=== PATIENT | male | born 1945 | race Caucasian/White ===

== ENCOUNTER 2017-12-06 13:53 | Outpatient (CLI) | payer MEDICARE, BC | END 2017-12-06 13:54 | disposition home or self-care (01) | LOC: BICMRI 13:53 | PROVIDERS: ATTEND Anesthesiology | DX: M51.16 Intervertebral disc disorders with radiculopathy, lumbar region (principal); M99.83 Other biomechanical lesions of lumbar region; Z98.890 Other specified postprocedural states | CPT/HCPCS: 72148 ==

== ENCOUNTER 2017-12-27 07:37 | Day surgery (SDC) | payer MEDICARE, BC ==
[2017-12-24 09:29] VITALS: BMI 34.0
--- NOTE | 2017-12-27 02:28 | HP ---
HISTORY OF PRESENT ILLNESS: Mr. Reese is a 72-year-old man who is known to have previous lumbar de compression returns now with a right-sided lower extremity S1 radiculopathy and right foot drop. He has L5 disk herniation with superior migration that effaces both the L5 nerve as it exits and the crystal cending S1 nerve. He has tried physical therapy, injections, medications and was only offered limite d relief, elected to proceed with surgery at this time. PAST MEDICAL HISTORY: Significant for hypercholesterolemia, BPH, chronic pain, diabetes, hypertensio n. CURRENT MEDICATIONS: Include DHEA, metformin, , amitriptyline, tamsulosin, atorvastatin, carved ilol, glipizide, fenofibrate, losartan, hydrochlorothiazide, pioglitazone, dutasteride, aspirin, thyr oid medication, unspecified; isosorbide mononitrate, omeprazole, meloxicam, testosterone patch, trama dol, and Tylenol #3. ALLERGIES: No known drug allergies. PHYSICAL EXAMINATION: NEUROLOGIC: Patient is alert and oriented x3. Gait is antalgic. Does have a on the right wit h weakness with dorsiflexion. ASSESSMENT: Lumbar disk herniation. PLAN: Dr. Nam met with the patient, reviewed imaging and ultimately advocated for a right L5 diske ctomy. He explained to the patient the risks, benefits, alternatives of the procedure. The patient expressed understanding and would like to move forward with surgery as discussed. I do believe the p atient is mentally competent and capable of making medical decisions for himself. We will move forwa rd with surgery as planned. This is Donavon Case PA-C, dictating for Dr. Nam.
[2017-12-27] MEDS ORDERED: Lidocaine 2% w/Epinephrine 1:200K 20 ML VIAL ONE (08:03)
[2017-12-27] MEDS ORDERED: Thrombin 5000 UNITS/5 ML VIAL ONE (08:03)
[2017-12-27] MEDS ORDERED: Bupivacaine 0.5% 10 ML VIAL ONE (08:03)
[2017-12-27 08:08] LABS: #Basophils 0.1 thou/uL (0.0-0.2); #Eosinphils 0.1 thou/uL (0.0-0.7); #Lymphocytes 2.7 thou/uL (1.20-3.40); #Monocytes 0.7 thou/uL (0.11-0.59); #Neutrophils 2.8 thou/uL (1.40-6.50); %Basophils 2.2 % (0.0-1.0); %Lymphocytes 42.2 % (21.0-51.0); %Monocytes 10.5 % (0.0-10.0); %Neutrophils 43.1 % (42.0-75.0); Hemoglobin 16.3 g/dL (14.0-18.0); Mean Corpuscular HGB CONC 33.7 g/dL (32.0-36.0); Mean Corpuscular Hemoglobin 33.2 pg (27.0-31.0); Mean Corpuscular Volume 98.3 fl (80.0-94.0); Mean Platelet Volume 9.9 fL (7.4-10.4); Platelet Count 131 thou/uL (130-400); RBC Distribution Width 12.3 % (11.5-14.5); Red Blood Cell (RBC) Count 4.92 mill/uL (4.70-6.10); White Blood Cell (WBC) Count 6.4 thou/uL (4.8-10.8)
[2017-12-27] MEDS ORDERED: CEFAZOLIN/Water 2 GM/20 ML SYRINGE ONE ×2 (08:19→12:44)
[2017-12-27 08:30] LABS: Anion Gap 10 mmol/L (10-20); BUN (Urea Nitrogen) 22 mg/dL (8.4-25.7); Calc. Creatinine Clearance 59 mL/min (70-130); Calcium 9.8 mg/dL (7.8-10.44); Carbon Dioxide 25 mmol/L (23-31); Chloride 103 mmol/L (98-107); Estimated GFR-MDRD 42; Glucose 204 mg/dL (83-110); Potassium 4.2 mmol/L (3.5-5.1); Sodium 134 mmol/L (136-145)
[2017-12-27] MEDS ORDERED: Midazolam HCl 2 mg/2 ml Vial ONE (08:39)
[2017-12-27] MEDS ORDERED: Fentanyl 100 MCG/2 ML VIAL ONE ×2 (08:39→10:07)
--- NOTE | 2017-12-27 10:05 | OP ---
DATE OF PROCEDURE: 12/27/2017 SURGEON: Alejandro Nam M.D. RUBBER CUTTING MACHINE TENDER: Kvng Case PA-C. INDICATION: Pain. DIAGNOSIS: Lumbar radiculopathy. PROCEDURE: Right L5 diskectomy. ANESTHESIA: General. TECHNIQUE: The patient was brought into the operating room and placed under general anesthesia. He was flipped from a supine to a prone position on the operating room table. A linear incision was briseyda nned over the L5 segment. After prepping and draping and after an appropriate operative pause, the i ncision was created. The tissues were swept right of midline. A self-retaining retractor was placed in the wound for optimal exposure. After confirming the appropriate level, a high-speed cutting dri ll bit as well as 2, 3, and 4 mm Kerrison is used to perform a laminectomy along the right side of L5 . The descending S1 nerve root was identified and mobilized medially. A superiorly migrated disk pr otuberance was identified. An 11-blade knife was used to perform an annulotomy on the disk material. Several large disk fragments were removed until the lateral recesses were decompressed. The wound was irrigated. Hemostasis was maintained throughout. The wound was then closed in anatomic layers a nd a pressure dressing was applied. There were no known procedural complications.
[2017-12-27] MEDS ORDERED: Tamsulosin HCl 0.4 MG CAP ONE (10:10)
[2017-12-27] MEDS ORDERED: HYDROcodone/Acetaminophen 5/325 mg Tablet ONE (12:14)
[2017-12-27] MEDS ORDERED: ePHEDrine/0.9% NaCl/PF SYRINGE 50 mg/10 ml ONE (12:25)
[2017-12-27] MEDS ORDERED: Glycopyrrolate 0.2 MG/ML 5 ML SYRINGE ONE (12:25)
[2017-12-27] MEDS ORDERED: Ondansetron HCl/PF 4 MG/2 ML Vial ONE (12:25)
[2017-12-27] MEDS ORDERED: Lidocaine 1% PF 5 ML VIAL ONE (12:25)
[2017-12-27] MEDS ORDERED: PHENYLEPHRINE-NS 100 MCG/ML 10 ML SYRINGE ONE (12:25)
[2017-12-27] MEDS ORDERED: Labetalol 100 MG/20 ML MDV ONE (12:25)
[2017-12-27] MEDS ORDERED: Dexamethasone 20 MG/5 ML VIAL ONE (12:25)
[2017-12-27] MEDS ORDERED: Propofol 200 MG/20 ML VIAL ONE (12:25)
== END 2017-12-27 13:33 | disposition home or self-care (01) ==
LOC: SDC 07:37
PROVIDERS: ATTEND Neurological Surgery
PROC: 0SB20ZZ Excision of Lumbar Vertebral Disc, Open Approach (ICD-10-PCS; principal; 2017-12-27)
DX: M54.16 Radiculopathy, lumbar region (principal); I25.10 Atherosclerotic heart disease of native coronary artery without angina pectoris; E78.5 Hyperlipidemia, unspecified; E11.51 Type 2 diabetes mellitus with diabetic peripheral angiopathy without gangrene; I10 Essential (primary) hypertension; G47.33 Obstructive sleep apnea (adult) (pediatric); Z88.8 Allergy status to other drugs, medicaments and biological substances; Z95.5 Presence of coronary angioplasty implant and graft; Z82.49 Family history of ischemic heart disease and other diseases of the circulatory system
CPT/HCPCS: 36415; 76001; 80048; 85025; 93005; 93010; 96374; J1100; J2001; J2250; J2405; J2704; J3010; J3490

== ENCOUNTER 2020-05-15 21:06 | Inpatient (IN) | payer MEDICARE, BC ==
[2020-05-15 22:05] LABS: #Basophils 0.1 thou/uL (0.0-0.2); #Eosinphils 0.2 thou/uL (0.0-0.7); #Lymphocytes 2.7 thou/uL (1.20-3.40); #Monocytes 0.5 thou/uL (0.11-0.59); #Neutrophils 2.6 thou/uL (1.40-6.50); %Basophils 1.7 % (0.0-1.0); %Eosinophils 2.9 % (0.0-10.0); %Lymphocytes 44.3 % (21.0-51.0); %Monocytes 7.4 % (0.0-10.0); %Neutrophils 43.6 % (42.0-75.0); Hemoglobin 13.2 g/dL (14.0-18.0); Mean Corpuscular HGB CONC 33.5 g/dL (32.0-36.0); Mean Corpuscular Hemoglobin 32.2 pg (27.0-31.0); Mean Platelet Volume 11.3 fL (7.4-10.4); Platelet Count 190 thou/uL (130-400); RBC Distribution Width 12.7 % (11.5-14.5); Red Blood Cell (RBC) Count 4.12 mill/uL (4.70-6.10)
[2020-05-15] MEDS ORDERED: Aspirin 325 MG TAB ONE (22:09)
[2020-05-15 22:19] LABS: ALT (SGPT) 18 U/L (8-55); AST (SGOT) 21 U/L (5-34); Albumin 4.1 g/dL (3.4-4.8); Alkaline Phosphatase 49 U/L (40-110); Anion Gap 14 mmol/L (10-20); BUN (Urea Nitrogen) 22 mg/dL (8.4-25.7); Bilirubin, Total 0.5 mg/dL (0.2-1.2); Calc. Creatinine Clearance 0 mL/min (70-130); Calcium 10.6 mg/dL (7.8-10.44); Carbon Dioxide 23 mmol/L (23-31); Chloride 103 mmol/L (98-107); Estimated GFR-MDRD 39; Globulin 2.9 g/dL (2.4-3.5); Glucose 233 mg/dL (83-110); Potassium 3.7 mmol/L (3.5-5.1); Sodium 136 mmol/L (136-145)
[2020-05-15 22:23] LABS: Critical Call Chem Troponin I RESULT DECREASING
--- NOTE | 2020-05-15 22:38 | RAD ---
XR Chest 1 View Portable History: Chest pain Comparison: Radiograph 2015 Findings: Lungs are clear. No pneumothorax or effusion. Cardiac silhouette and mediastinal contours a re similar. No acute osseous abnormality. Impression: No acute intrathoracic abnormality.
[2020-05-15 22:41] LABS: CKMB 2.8 ng/mL (0-6.6)
[2020-05-15] MEDS ORDERED: Enoxaparin Sodium 100 MG/ML SYRINGE ONE (22:43)
[2020-05-15] MEDS ORDERED: Ondansetron ODT 4 MG TAB PO PRN (23:03)
[2020-05-15] MEDS ORDERED: Acetaminophen 325 MG TAB PO PRN (23:03)
[2020-05-15] MEDS ORDERED: Ondansetron PF 4 MG/2 ML Vial IVP PRN (23:03)
[2020-05-15] MEDS ORDERED: Acetaminophen 650 MG Suppository PR PRN (23:03)
[2020-05-15] MEDS ORDERED: HYDROcodone/Acetaminophen 5/325 mg Tablet PO PRN ×2 (23:03)
[2020-05-15] MEDS ORDERED: Nitroglycerin 0.4 MG TAB (25 Tab Bottle) PO PRN (23:03)
[2020-05-15] MEDS ORDERED: Dextrose 50% Abboject 50 ML SYRINGE SLOW IVP PRN (23:11)
[2020-05-15] MEDS ORDERED: HumaLOG 300 UNITS/3 ML VIAL SC PRN (23:11)
[2020-05-15] MEDS ORDERED: Dextrose 5% in Water 1,000 ML IV PRN (23:11)
--- NOTE | 2020-05-15 23:12 | PDOC.HHP ---
Hospitalist HPI - History of Present Illness chest pain History of Present Illness: Case of an 74y/o male with pmhx of dm, hyperlipidemia, ckd, htn and cad who comes to hospital sent by solderer due to elevated troponin and chest pain. patient refers he was on his usual states of health until 2 months ago when he started to developed occasional chest pain. pains is described as 8/10 of crushing quality in the restrosternal area that radiated to both arms, with a variable duration. he states that these symtoms kept progressing and now these episodes happen more ofter and with greater intensity and now are associated with sob. apart from these findings patient also report SHARIFA that improves with rest. denies any n/v leg edema orthopnea or PND. patient states that due to states above he went for an evaluation w his solderer who ran trops and an echo and later called the patient to go to the ED due to elevated troponins Hospitalist ROS - Review of Systems All other systems reviewed; all pertinent +/- noted in HPI/Subj Hospitalist History - Past Medical History Source: patient Cardiac: reports: CAD, HTN, Hyperlipidemia Endocrine: reports: Diabetes - Past Surgical History Past Surgical History: reports: Cholecystectomy, Cataract Removal Other Surgical History: penile implant - Family History Family History: reports: cancer, diabetes mellitus, hypertension - Social History Smoking Status: Never smoker Alcohol: reports: Occassional Drugs: reports: none Activity level: independent ambulation - Exam General Appearance: NAD, awake alert Eye: PERRL, anicteric sclera ENT: normocephalic atraumatic, no oropharyngeal lesions Neck: supple, symmetric, no JVD, no thyromegaly Heart: RRR, no murmur, no gallops, no rubs Respiratory: CTAB, no wheezes, no rales, no ronchi Gastrointestinal: soft, non-tender, non-distended, normal bowel sounds Extremities: no cyanosis, no clubbing, no edema Skin: normal turgor, no lesions, no rashes Neurological: cranial nerve grossly intact, normal sensation to touch, no weakness Musculoskeletal: normal tone, normal strength, no muscle wasting Psychiatric: normal affect, normal behavior, A&O x 3 Hospitalist Results - Labs Result Diagrams: 05/15/20 21:32 05/15/20 21:32 Lab results: WBC 6.0 thou/uL (4.8-10.8) 05/15/20 21:32 Hgb 13.2 g/dL (14.0-18.0) L 05/15/20 21:32 Hct 39.5 % (42.0-52.0) L 05/15/20 21:32 MCV 96.0 fL (78.0-98.0) 05/15/20 21:32 Plt Count 190 thou/uL (130-400) 05/15/20 21:32 Neutrophils % 43.6 % (42.0-75.0) 05/15/20 21:32 Sodium 136 mmol/L (136-145) 05/15/20 21:32 Potassium 3.7 mmol/L (3.5-5.1) 05/15/20 21:32 Chloride 103 mmol/L (98-107) 05/15/20 21:32 Carbon Dioxide 23 mmol/L (23-31) 05/15/20 21:32 BUN 22 mg/dL (8.4-25.7) 05/15/20 21:32 Creatinine 1.73 mg/dL (0.7-1.3) H 05/15/20 21:32 Glucose 233 mg/dL (83-110) H 05/15/20 21:32 Calcium 10.6 mg/dL (7.8-10.44) H 05/15/20 21:32 Total Bilirubin 0.5 mg/dL (0.2-1.2) 05/15/20 21:32 AST 21 U/L (5-34) 05/15/20 21:32 ALT 18 U/L (8-55) 05/15/20 21:32 Alkaline Phosphatase 49 U/L (40-110) 05/15/20 21:32 CK-MB (CK-2) 2.8 ng/mL (0-6.6) 05/15/20 21:32 Troponin I 0.376 ng/mL (< 0.028) H* 05/15/20 21:32 B-Natriuretic Peptide 99.2 pg/mL (0-100) 05/15/20 21:32 Serum Total Protein 7.0 g/dL (5.8-8.1) 05/15/20 21:32 Albumin 4.1 g/dL (3.4-4.8) 05/15/20 21:32 - EKG Interpretation EKG: no ischemic st changes - Radiology Interpretation Chest x-ray Additional Comment: no effusions consolidation or infiltrates Hospitalist H&P A/P - Problem (1) Chest pain Code(s): R07.9 - CHEST PAIN, UNSPECIFIED Status: Acute (2) Diabetes Code(s): E11.9 - TYPE 2 DIABETES MELLITUS WITHOUT COMPLICATIONS Status: Acute (3) HTN (hypertension) Code(s): I10 - ESSENTIAL (PRIMARY) HYPERTENSION Status: Acute (4) CAD (coronary artery disease) Code(s): I25.10 - ATHSCL HEART DISEASE OF [place] CORONARY ARTERY W/O ANG PCTRS Status: Acute (5) Hyperlipidemia Code(s): E78.5 - HYPERLIPIDEMIA, UNSPECIFIED Status: Acute - Plan Plan: 74 y/o with the stated pmhx who comes to hospital sent by solderer dr haskins due to elevated trops in a patient presenting symptoms of unstable angina chest pain -admit to tele obs - on optimal cad medication with beta frank statin and acei - full anticoagulation with lovenox - solderer consulted - [facility] in am - serial troponins - ivfs 1ml x kg to precent zev - accu cheks and ss
[2020-05-16] MEDS: Sodium Chloride 0.9% 1,000 ML IV SCH ×4 (00:24→20:23)
[2020-05-16 01:11] LABS: Critical Call Chem Troponin I RESULT DECREASING; Troponin I 0.358 ng/mL (< 0.028)
[2020-05-16 04:44] LABS: ALT (SGPT) 14 U/L (8-55); AST (SGOT) 17 U/L (5-34); Albumin 3.6 g/dL (3.4-4.8); Alkaline Phosphatase 45 U/L (40-110); Anion Gap 12 mmol/L (10-20); BUN (Urea Nitrogen) 21 mg/dL (8.4-25.7); Bilirubin, Total 0.3 mg/dL (0.2-1.2); Calc. Creatinine Clearance 65 mL/min (70-130); Calcium 9.9 mg/dL (7.8-10.44); Carbon Dioxide 23 mmol/L (23-31); Cardiac Risk 9.8 (Less than 4.5); Chloride 104 mmol/L (98-107); Cholesterol 186 mg/dl (< 200 Desired); Estimated GFR-MDRD 44; Globulin 2.5 g/dL (2.4-3.5); Glucose 168 mg/dL (83-110); HDL Cholesterol 19 mg/dL (>60 Neg Risk); Potassium 3.3 mmol/L (3.5-5.1); Protein, Total 6.1 g/dL (5.8-8.1); Sodium 136 mmol/L (136-145); Triglycerides 442 mg/dL (Less than 150)
[2020-05-16 04:47] LABS: Troponin I 0.278 ng/mL (< 0.028)
[2020-05-16 05:08] LABS: Eosinophils 2 % (0-10); Lymphocytes 64 % (21-51); MDiff Complete? YES; Mean Corpuscular HGB CONC 33.3 g/dL (32.0-36.0); Mean Corpuscular Hemoglobin 31.7 pg (27.0-31.0); Mean Corpuscular Volume 95.2 fL (78.0-98.0); Mean Platelet Volume 10.5 fL (7.4-10.4); Monocytes 3 % (0-10); Neutrophil 30 % (42-75); Platelet Count 177 thou/uL (130-400); Platelet Morphology Comment Appears Adequate; RBC Distribution Width 12.7 % (11.5-14.5); Red Blood Cell (RBC) Count 3.79 mill/uL (4.70-6.10)
[2020-05-16 05:28] LABS: Hemoglobin A1c 8.8 % (4.0-6.0)
[2020-05-16] MEDS: Isosorbide Dinitrate 20 MG TAB PO SCH (05:55)
[2020-05-16] MEDS: Carvedilol 6.25 MG TAB PO SCH ×2 (05:56→17:56)
[2020-05-16] MEDS: Tamsulosin HCl 0.4 MG CAP PO SCH (05:56)
[2020-05-16] MEDS: Fenofibrate Nanocrystallized 145 MG TAB PO SCH (05:56)
[2020-05-16] MEDS: Aspirin 325 mg Enteric Coated Tablet PO SCH (05:56)
[2020-05-16] MEDS ORDERED: Iopamidol 370 76% 100 ML VIAL ONE (08:42)
[2020-05-16] MEDS ORDERED: Enoxaparin Sodium 100 MG/ML SYRINGE SC SCH (09:00)
[2020-05-16] MEDS ORDERED: Prevnar 13-Val Conj/PF 0.5 ML SYRINGE IM ONE (09:00)
[2020-05-16] MEDS ORDERED: Nitroglycerin 100MG/250ML BOT 250 ML ONE (11:22)
[2020-05-16] MEDS ORDERED: Verapamil 5 MG/2 ML VIAL ONE (11:22)
[2020-05-16] MEDS ORDERED: Heparin 10,000 UNITS/1 ML VIAL ONE (11:22)
[2020-05-16] MEDS ORDERED: Acetaminophen/Codeine 30-300mg Tablet PO PRN ×2 (11:47)
[2020-05-16] MEDS ORDERED: Nitroglycerin 0.4 MG TAB (25 Tab Bottle) SL PRN (11:47)
[2020-05-16] MEDS ORDERED: Sodium Chloride 0.9% 200 ML IV PRN (11:47)
[2020-05-16] MEDS ORDERED: Communication Order-Pharmacy FS SCH (12:21)
[2020-05-16] MEDS ORDERED: Diazepam 5 MG TAB PO PRN (12:21)
--- NOTE | 2020-05-16 15:00 | CON ---
DATE OF CONSULTATION: 05/16/2020 REASON FOR CONSULTATION: Evaluate the patient for coronary artery bypass grafting. HISTORY OF PRESENT ILLNESS: Mr. Reese is a 74-year-old gentleman who was seen yesterday in the clinic by Dr. Larsen. He had a troponin checked due to a complaint of reflux and chest pain. Troponin was positive, so he was admitted and underwent cardiac catheterization today. Catheterization has shown severe three-vessel disease. Potential bypassable targets included an LAD, OM, and PDA. I have been asked to see and discuss coronary artery bypass grafting. PAST MEDICAL HISTORY: 1. Hypertension. 2. Coronary artery disease. 3. Dyslipidemia. 4. Diabetes mellitus. PAST SURGICAL HISTORY: 1. Cholecystectomy. 2. Cataract surgery. 3. Penile implant. SOCIAL HISTORY: He has never used tobacco. MEDICATIONS: At home: 1. Aspirin 81 mg daily. 2. Isosorbide mononitrate 30 mg daily. 3. Ditropan 15 mg daily. 4. Amitriptyline one daily. 5. Tylenol No. 3 p.r.n. 6. Actos 15 mg daily. 7. Omeprazole 40 mg daily. 8. Lovaza 1 g b.i.d. 9. DHEA one capsule q.a.m. 10. Glipizide XL 5 mg b.i.d. 11. Zonisamide 2 capsules b.i.d. 12. Tramadol 1 to 2 q.6 hours p.r.n. pain. 13. Metformin 1000 mg daily. 14. Fenofibrate 130 mg daily. 15. Carvedilol 6.25 mg b.i.d. 16. Atorvastatin 80 mg at bedtime. 17. Flomax 0.4 mg daily. 18. Losartan/hydrochlorothiazide 50/12.5 mg daily. ALLERGIES: NIACIN. PHYSICAL EXAMINATION: GENERAL: This is an obese gentleman, resting comfortably post cath. VITAL SIGNS: His height is 5 feet 7 inches. His weight is 240 pounds. BSA is 2.27. BMI is 37. Temperature is 97.9, pulse is 73 and regular, and blood pressure is 110/54. HEENT: Sclerae nonicteric. Pupils are equal and round bilaterally. NECK: Supple without bruit. CHEST: Clear bilaterally with a barrel chest. HEART: Rhythm is regular without murmur. ABDOMEN: Soft and nontender. EXTREMITIES: No edema. VASCULAR: Palpable carotid, radial, femoral, dorsalis pedis pulses bilaterally. Venous: There are no venous stasis changes. LABORATORY DATA: Of note: Potassium is 3.3, creatinine is 1.55. Hemoglobin is 12.0, platelet count is 177,000. Chest x-ray shows normal cardiac silhouette with clear lung villatoro and no dominant lung mass. ASSESSMENT AND PLAN: Mr. Reese is a 74-year-old gentleman with severe three-vessel disease and unstable angina. Risks, benefits, and options to coronary artery bypass grafting have been discussed with him and he is agreeable to proceed tomorrow. Job ID: [id number]
--- NOTE | 2020-05-16 15:53 | PDOC.HOSPP ---
- Subjective Encounter Date: 05/16/20 Subjective: Feels well. Happy to have some food to eat. - Objective Vital Signs & Weight: Vital Signs (12 hours) Temp Pulse Resp BP BP Pulse Ox 05/16/20 08:50 97.9 F 73 14 110/54 L 96 05/16/20 05:56 114/58 L Weight Weight 240 lb 3.2 oz Result Diagrams: 05/16/20 04:11 05/16/20 04:11 Additional Labs: Accuchecks 05/16/20 05/16/20 10:52 05:27 POC Glucose 183 H 181 H Hospitalist ROS - Medication Medications: Active Medications Generic Name Dose Route Start Last Admin Trade Name Freq PRN Reason Stop Dose Admin Aspirin 325 mg 05/16/20 09:00 05/16/20 05:56 Ecotrin PO 325 mg DAILY DON Administration Carvedilol 6.25 mg 05/16/20 08:00 05/16/20 05:56 Coreg PO 6.25 mg BID-WM DON Administration Fenofibrate 145 mg 05/16/20 09:00 05/16/20 05:56 Tricor PO 145 mg DAILY DON Administration Sodium Chloride 1,000 mls @ 125 mls/hr 05/16/20 12:00 05/16/20 13:47 Normal Saline 0.9% IV 05/17/20 00:01 Not Given .Q8H DON Isosorbide Dinitrate 30 mg 05/16/20 09:00 05/16/20 05:55 Isordil PO 30 mg DAILY DON Administration Tamsulosin HCl 0.4 mg 05/16/20 09:00 05/16/20 05:56 Flomax PO 0.4 mg DAILY DON Administration - Exam General Appearance: NAD, awake alert Neck: supple, symmetric, no JVD, no thyromegaly, no lymphadenopathy, no carotid bruit Heart: RRR, no murmur, no gallops, no rubs, normal peripheral pulses Respiratory: CTAB, no wheezes, no rales, no ronchi, normal chest expansion, no tachypnea, normal percussion Gastrointestinal: soft, non-tender, non-distended, normal bowel sounds, no palpable masses, no hepatomegaly, no splenomegaly, no bruit Extremities: no cyanosis, no clubbing, no edema Skin: normal turgor Musculoskeletal: normal tone, normal strength, no muscle wasting Psychiatric: normal affect, normal behavior, A&O x 3 Hosp A/P (1) CAD (coronary artery disease) Code(s): I25.10 - ATHSCL HEART DISEASE OF [place] CORONARY ARTERY W/O ANG PCTRS Status: Acute (2) Chest pain Code(s): R07.9 - CHEST PAIN, UNSPECIFIED Status: Acute (3) Diabetes Code(s): E11.9 - TYPE 2 DIABETES MELLITUS WITHOUT COMPLICATIONS Status: Acute (4) HTN (hypertension) Code(s): I10 - ESSENTIAL (PRIMARY) HYPERTENSION Status: Acute (5) Hyperlipidemia Code(s): E78.5 - HYPERLIPIDEMIA, UNSPECIFIED Status: Acute - Plan Coronary artery disease: Patient had three-vessel disease it was severe. He has been seen by CV surgery. Anticipate bypass tomorrow. Hypertension: Continue with the patient's home antihypertensives. Hyperlipidemia: Patient is on high-dose, high potency statin. He still has a fairly poor cholesterol profile. Continue home meds. Diabetes mellitus: Continue with home insulin regimen.
[2020-05-16] MEDS ORDERED: Potassium Chloride 20 MEQ TAB PO SCH (16:15)
[2020-05-16] MEDS: Atorvastatin Calcium 40 MG TAB PO SCH (20:23)
[2020-05-16] MEDS ORDERED: Insulin Glargine 10 UNITS in Pre-Filled Syringe 1 EACH SC SCH (21:00)
[2020-05-17 05:14] LABS: Anion Gap 13 mmol/L (10-20); BUN (Urea Nitrogen) 16 mg/dL (8.4-25.7); Calc. Creatinine Clearance 68 mL/min (70-130); Calcium 9.3 mg/dL (7.8-10.44); Carbon Dioxide 21 mmol/L (23-31); Chloride 109 mmol/L (98-107); Estimated GFR-MDRD 46; Glucose 170 mg/dL (83-110); Potassium 4.1 mmol/L (3.5-5.1); Sodium 139 mmol/L (136-145)
[2020-05-17] MEDS: Fenofibrate Nanocrystallized 145 MG TAB PO SCH (05:43)
[2020-05-17] MEDS: Isosorbide Dinitrate 20 MG TAB PO SCH (05:43)
[2020-05-17] MEDS: Tamsulosin HCl 0.4 MG CAP PO SCH (05:43)
[2020-05-17] MEDS: Carvedilol 6.25 MG TAB PO SCH (05:44)
[2020-05-17] MEDS: Aspirin 325 mg Enteric Coated Tablet PO SCH (05:44)
[2020-05-17] MEDS ORDERED: Bupivacaine PF 0.5% 30 ML VIAL ONE (06:29)
[2020-05-17] MEDS ORDERED: EPINEPHrine 1 MG/ML AMP ONE (06:29)
[2020-05-17] MEDS ORDERED: Albumin 5% 500 ML ONE (06:29)
[2020-05-17] MEDS ORDERED: Heparin 10,000 UNITS/1 ML VIAL 30,000 UNITS in Sodium Chloride 0.9% 1,000 ML FS SCH (06:45)
[2020-05-17] MEDS ORDERED: Midazolam HCl 5 mg/5 ml Vial ONE (06:51)
[2020-05-17] MEDS ORDERED: Dexmedetomidine 200 MCG/2 ML VIAL ONE (06:51)
[2020-05-17] MEDS ORDERED: Fentanyl 250 MCG/5 ML VIAL ONE (06:51)
[2020-05-17] MEDS ORDERED: Midazolam HCl 2 mg/2 ml Vial ONE (07:06)
[2020-05-17] MEDS ORDERED: CEFAZOLIN 2 GM in Premix Bag 1 BAG IVPB SCH (07:30)
[2020-05-17] MEDS ORDERED: Insulin Regular 300 UNITS/3 ML VIAL ONE (08:02)
[2020-05-17] MEDS ORDERED: D5 1/2 NS w/20 mEq KCL 1,000 ML IV SCH (11:10)
[2020-05-17] MEDS ORDERED: Promethazine HCl 25 MG/ML VIAL IM PRN (11:10)
[2020-05-17] MEDS ORDERED: Fentanyl 100 MCG/2 ML VIAL SLOW IVP PRN (11:10)
[2020-05-17] MEDS ORDERED: HYDROcodone/Acetaminophen 5/325 mg Tablet PO PRN (11:10)
[2020-05-17] MEDS ORDERED: Guaifenesin DM 100-10/5 ML UDCUP PO PRN (11:10)
[2020-05-17] MEDS ORDERED: Bisacodyl 10 MG SUPP PR PRN (11:10)
[2020-05-17] MEDS ORDERED: niCARdipine 25 MG in Sodium Chloride 0.9% 250 ML 240 ML IVPB PRN (11:10)
[2020-05-17] MEDS ORDERED: Nitroglycerin 50 MG/250 ML BOT 250 ML IVPB PRN (11:10)
[2020-05-17] MEDS ORDERED: Morphine 2 MG/ML VIAL SLOW IVP PRN (11:10)
[2020-05-17] MEDS ORDERED: Magnesium 2 GM/50 ML 2 GM in Premix Bag 1 BAG IVPB SCH (11:10)
[2020-05-17] MEDS ORDERED: Hetastarch 6% 500 ML 500 ML IVPB PRN (11:10)
[2020-05-17] MEDS ORDERED: Acetaminophen 325 MG TAB PO PRN (11:10)
[2020-05-17] MEDS ORDERED: Bisacodyl 5 MG TAB PO PRN (11:10)
[2020-05-17] MEDS ORDERED: Norepinephrine 8 MG/0.9% NS 250 ML IVPB PRN (11:10)
[2020-05-17] MEDS ORDERED: Mag-Al 1200 mg/1200 mg/30 ML UDCUP PO PRN (11:10)
[2020-05-17] MEDS ORDERED: Post-Op Insulin Drip Protocol IVPB ONE (11:10)
[2020-05-17] MEDS ORDERED: Ondansetron PF 4 MG/2 ML Vial IVP PRN (11:10)
[2020-05-17 11:13] LABS: Actual Bicarbonate (HCO3a) 19.8 mEq/L (22-28); Base Excess (BEa) -6.4 mEq/L (-2.0 to +3.0); CO2 Tension 42.4 mmHg (35.0-45.0); Calcium, Ionized (arterial) 1.18 mmol/L (1.12-1.30); Carboxyhemoglobin (COHb) 0.3 gm% (0.0-3.0); Hemoglobin (Hb) 11.2 g/dL (14.0-18.0); O2 Tension (PaO2), arterial 71.7 mmHg (> 70.0); Potassium - ABG Lab 4.08 mmol/L (3.70-5.30); pH, Arterial 7.29 (7.35-7.45)
[2020-05-17 11:18] LABS: Puncture Site ALINE
[2020-05-17] MEDS ORDERED: Dextrose 50% Abboject 50 ML SYRINGE SLOW IVP PRN (11:21)
[2020-05-17] MEDS ORDERED: HUMULIN R 100 UNITS in Sodium Chloride 0.9% 100 ML IVPB SCH (11:21)
[2020-05-17] MEDS ORDERED: Dextrose 5% in Water 1,000 ML IV PRN (11:21)
[2020-05-17 11:27] LABS: #Basophils 0.1 thou/uL (0.0-0.2); #Eosinphils 0.3 thou/uL (0.0-0.7); #Monocytes 0.7 thou/uL (0.11-0.59); %Basophils 0.8 % (0.0-1.0); %Eosinophils 2.3 % (0.0-10.0); %Lymphocytes 27.1 % (21.0-51.0); %Monocytes 6.5 % (0.0-10.0); %Neutrophils 63.3 % (42.0-75.0); Hemoglobin 10.8 g/dL (14.0-18.0); Mean Corpuscular HGB CONC 34.2 g/dL (32.0-36.0); Mean Corpuscular Hemoglobin 32.9 pg (27.0-31.0); Mean Corpuscular Volume 96.4 fL (78.0-98.0); Mean Platelet Volume 10.3 fL (7.4-10.4); Platelet Count 175 thou/uL (130-400); RBC Distribution Width 12.6 % (11.5-14.5); Red Blood Cell (RBC) Count 3.29 mill/uL (4.70-6.10); White Blood Cell (WBC) Count 11.1 thou/uL (4.8-10.8)
[2020-05-17 11:31] LABS: INR-International Normal Ratio 1.2; Prothrombin Time 15.2 sec (12.0-14.7)
[2020-05-17 11:32] LABS: PTT 28.5 sec (22.9-36.1)
--- NOTE | 2020-05-17 11:41 | OP ---
DATE OF PROCEDURE: 05/17/2020 PREOPERATIVE DIAGNOSES: Coronary artery disease/diabetes mellitus/hypertension/dyslipidemia/morbid obesity. POSTOPERATIVE DIAGNOSES: Coronary artery disease/diabetes mellitus/hypertension/dyslipidemia/morbid obesity. PROCEDURES PERFORMED: Coronary artery bypass grafting x3: 1. Left internal mammary artery to 1.5 mm heavily calcified LAD. 2. Reverse saphenous vein to 1.75 mm OM. 3. Reverse saphenous vein to 1.5 mm heavily calcified PDA. Conduit was all adequate with targets that I would not consider for redo. SR. MEDIA MANAGER: Dr. Alejandro Forbes. ANESTHESIA: General endotracheal - Dr. Fransisco Broussard. PUMP TIME: 54 minutes. CROSS-CLAMP TIME: 27 minutes. LOW CORE TEMPERATURE: 34 degrees Celsius. ORBITREAD OPERATOR: Kavita Terrazas. DRAINS: 24-Bengali chest tubes x2. DRIPS: None. TRANSFUSIONS: None. DESCRIPTION OF PROCEDURE: After consent was obtained, the patient was brought to the operating room, placed in supine position on the operating room table. Appropriate central line and monitors were placed and general endotracheal anesthesia was induced. Chest, abdomen, and legs were prepped and draped in usual sterile fashion. Greater saphenous vein was harvested from the left lower extremity utilizing an endoscopic technique. Wound was irrigated and closed in layers. Median sternotomy was performed. Left internal mammary artery was harvested as a pedicle graft. The patient was systemically heparinized. Distal pedicle was divided and infused with papaverine. Thymic fat and pericardium were divided with electrocautery. Pericardial stay sutures were placed. Aortic and atrial cannulations were performed. After adequate heparinization, retrograde prime was performed and the patient was placed on cardiopulmonary bypass. Distal targets were marked. Aortic crossclamp was applied and antegrade sanguineous cardioplegic arrest was obtained. 1 L of antegrade cold [place] cardioplegia was given. Topical cold solution was used. Reverse saphenous vein was anastomosed to the PDA in end-to-side fashion with running 7-0 Prolene suture. Anastomosis was tested and was hemostatic. Reverse saphenous vein was anastomosed to the OM in end-to-side fashion with running 7-0 Prolene suture. Anastomosis was tested and was hemostatic. Mammary artery was brought through a window in the pericardium and anastomosed to the LAD in an end-to-side fashion with running 7-0 Prolene suture. On releasing the mammary clamps, there was good hooding of the anastomosis and good distal flow. Pedicle was secured with interrupted 6-0 Prolene suture. Cross-clamp was removed and partial occluding clamp placed. Saphenous veins were anastomosed to individual punch sites in the aorta. Partial occluding clamp was removed and graft deaired. Anastomoses were inspected for hemostasis, which was good. The patient was warmed and weaned from cardiopulmonary bypass. After resumption of sinus rhythm, good hemodynamics, temperature greater than 36.5, bypass was discontinued. Transfusions were given. Protamine was administered. Decannulation was performed and pursestring suture secured. Hemostasis was ensured within the mediastinum. Sternum was treated with vancomycin paste. After adequate hemostasis has been obtained, the sternum was closed with two wires in the manubrium and one in the distal sternum. Five zip ties were placed in the body of the sternum. Sternum was treated with platelet rich plasma and wires were twisted and buried. Zip ties were tightened and cut. Wounds were irrigated, treated with platelet poor plasma, and closed in multiple layers. Needle, sponge, and instrument counts were all reported as correct at the end of the procedure. The patient tolerated the procedure well and was transferred to the intensive care unit in stable critical condition. Job ID: [id number]
[2020-05-17 11:48] LABS: Anion Gap 11 mmol/L (10-20); BUN (Urea Nitrogen) 15 mg/dL (8.4-25.7); Calc. Creatinine Clearance 77 mL/min (70-130); Calcium 8.3 mg/dL (7.8-10.44); Carbon Dioxide 21 mmol/L (23-31); Chloride 114 mmol/L (98-107); Estimated GFR-MDRD 54; Glucose 142 mg/dL (83-110); Potassium 4.2 mmol/L (3.5-5.1); Sodium 142 mmol/L (136-145)
[2020-05-17] MEDS: Insulin Regular 300 UNITS/3 ML VIAL SC PRN (11:52)
--- NOTE | 2020-05-17 12:27 | RAD ---
PORTABLE CHEST: DATE: 05/17/2020. PROVIDED CLINICAL HISTORY: Post open heart. FINDINGS: Comparison is made with the study dated 05/15/2020. Cardiac silhouette appears enlarged. Interval med lizeth sternotomy changed. Vascular calcification persists. Right subclavian central line is now noted , the tip of which overlies expected location of RA. Endotracheal tube is now seen, the tip of which projects just cranial to the thoracic inlet. Prominence of the pulmonary vasculature. Obscuration of the left hemidiaphragm and left costophrenic angle. No evidence for pneumothorax. IMPRESSION: Prominence of the pulmonary vasculature and left basilar pleural and/or parenchymal opacity. POS: MOLLY
[2020-05-17] MEDS: CEFAZOLIN 2 GM in Premix Bag 1 BAG IVPB SCH ×2 (13:08→21:45)
[2020-05-17] MEDS ORDERED: Protamine Sulfate 250 MG/25 ML VIAL ONE (13:23)
[2020-05-17] MEDS ORDERED: Aminocaproic Acid 5 GM/20 ML VIAL ONE (13:23)
[2020-05-17] MEDS ORDERED: Thrombin 5000 UNITS/5 ML VIAL ONE (13:23)
[2020-05-17] MEDS ORDERED: Papaverine 60 MG/2 ML VIAL ONE (13:23)
[2020-05-17] MEDS ORDERED: PROPOFOL 200 MG/20 ML VIAL ONE (13:23)
[2020-05-17] MEDS ORDERED: Heparin 5,000 UNITS/ML VIAL ONE (13:23)
[2020-05-17] MEDS ORDERED: Ondansetron PF 4 MG/2 ML Vial ONE (13:23)
[2020-05-17] MEDS ORDERED: Vecuronium 10 MG VIAL ONE (13:23)
[2020-05-17] MEDS ORDERED: Norepinephrine 4 MG/4 ML VIAL ONE (13:23)
[2020-05-17] MEDS ORDERED: Sodium Bicarb 50 MEQ/50 ML Abboject 8.4% SYRINGE ONE (13:23)
[2020-05-17] MEDS ORDERED: Calcium Chloride 1 GM/10 ML Abboject SYRINGE ONE (13:23)
[2020-05-17] MEDS ORDERED: Heparin 30,000 units/30 ml VIAL ONE (13:23)
[2020-05-17] MEDS ORDERED: Magnesium Sulfate 1 GM/2 ML VIAL ONE (13:23)
[2020-05-17] MEDS ORDERED: Glycopyrrolate 0.2 MG/ML 5 ML SYRINGE ONE (13:23)
[2020-05-17] MEDS ORDERED: Potassium Chloride 60 MEQ/30 ML VIAL ONE (13:23)
[2020-05-17] MEDS ORDERED: Lidocaine 2% PF 5 ML VIAL ONE (13:23)
[2020-05-17] MEDS ORDERED: Lidocaine 1% PF 5 ML VIAL ONE (13:23)
[2020-05-17] MEDS ORDERED: Ketorolac Tromethamine 30 MG/ML VIAL ONE (13:23)
[2020-05-17] MEDS ORDERED: Cardioplegic Soln 1,000 ML BAG ONE (13:23)
[2020-05-17 15:16] LABS: Actual Bicarbonate (HCO3a) 19.1 mEq/L (22-28); CO2 Tension 28.7 mmHg (35.0-45.0); Calcium, Ionized (arterial) 1.16 mmol/L (1.12-1.30); Carboxyhemoglobin (COHb) 0.3 gm% (0.0-3.0); Hemoglobin (Hb) 11.1 g/dL (14.0-18.0); O2 Tension (PaO2), arterial 98.1 mmHg (> 70.0); Potassium - ABG Lab 4.15 mmol/L (3.70-5.30); pH, Arterial 7.44 (7.35-7.45)
[2020-05-17 15:23] LABS: ALV-art Gradient 151.225 (0-20); Puncture Site ALINE
--- NOTE | 2020-05-17 16:19 | PDOC.HOSPP ---
- Subjective Encounter Date: 05/17/20 Subjective: Extubated about an hour ago. Doing ok. Still has some pain. - Objective Vital Signs & Weight: Vital Signs (12 hours) Temp Pulse Resp BP Pulse Ox 05/17/20 16:00 97.9 F 95 05/17/20 14:00 17 05/17/20 13:25 14 05/17/20 12:00 97.5 F L 18 93 L 05/17/20 11:10 58 L 05/17/20 11:00 14 05/17/20 05:44 138/68 Weight Weight 239 lb 9.6 oz Most Recent Monitor Data Heart Rate from ECG 69 NIBP 91/53 NIBP BP-Mean 65 Respiration from ECG 19 SpO2 93 I&O: 05/16/20 05/17/20 05/18/20 06:59 06:59 06:59 Intake Total 120 250 Output Total 290 Balance 120 -40 Result Diagrams: 05/17/20 11:09 05/17/20 11:09 Additional Labs: Accuchecks 05/17/20 05/16/20 05/16/20 05:13 19:49 17:10 POC Glucose 176 H 283 H 278 H Hospitalist ROS - Medication Medications: Active Medications Generic Name Dose Route Start Last Admin Trade Name Freq PRN Reason Stop Dose Admin Albumin Human 12.5 gm 05/17/20 11:10 05/17/20 12:30 Albumin 5% IVPB 05/18/20 11:11 12.5 gm Q6H PRN Administration To Maintain SBP> 90 mmHG Atorvastatin Calcium 80 mg 05/16/20 21:00 05/16/20 20:23 Lipitor PO 80 mg HS DON Administration Fenofibrate 145 mg 05/16/20 09:00 05/17/20 05:43 Tricor PO 145 mg DAILY DON Administration Cefazolin Sodium/Dextrose 2 gm 50 mls @ 100 mls/hr 05/17/20 14:00 05/17/20 13 :08 / Device IVPB 05/18/20 06:29 50 mls Q8HR DON Administration Potassium Chloride/Dextrose/Sod Cl 1,000 mls @ 40 mls/hr 05/17/20 11:10 05/17 11:43 D5 1/2 Ns W/20 Meq Kcl IV 1,000 mls .Q24H DON Administration Insulin Human Regular 100 101 mls @ 0 mls/hr 05/17/20 11:21 05/17/20 13:39 units/ Sodium Chloride IVPB 101 mls INF DON Administration Protocol As Directed Insulin Human Regular 0 units 05/17/20 11:21 05/17/20 11:52 Humulin R SC 3 unit Q4H PRN Administration POST OP SLIDING SCALE Protocol Tamsulosin HCl 0.4 mg 05/16/20 09:00 05/17/20 05:43 Flomax PO 0.4 mg DAILY DON Administration - Exam General Appearance: NAD, awake alert Heart: RRR, no murmur, no gallops, no rubs, normal peripheral pulses Respiratory: CTAB, no wheezes, no rales, no ronchi, normal chest expansion, no tachypnea, normal percussion Gastrointestinal: soft, non-tender, non-distended, normal bowel sounds, no palpable masses, no hepatomegaly, no splenomegaly, no bruit Extremities: no cyanosis, no clubbing, no edema Extremities - other findings: LLE with post-op dressing. Musculoskeletal: normal tone Psychiatric: normal affect, normal behavior, A&O x 3 Hosp A/P (1) CAD (coronary artery disease) Code(s): I25.10 - ATHSCL HEART DISEASE OF [place] CORONARY ARTERY W/O ANG PCTRS Status: Acute (2) Chest pain Code(s): R07.9 - CHEST PAIN, UNSPECIFIED Status: Acute (3) Diabetes Code(s): E11.9 - TYPE 2 DIABETES MELLITUS WITHOUT COMPLICATIONS Status: Acute (4) HTN (hypertension) Code(s): I10 - ESSENTIAL (PRIMARY) HYPERTENSION Status: Acute (5) Hyperlipidemia Code(s): E78.5 - HYPERLIPIDEMIA, UNSPECIFIED Status: Acute (6) CKD (chronic kidney disease), stage III Code(s): N18.3 - CHRONIC KIDNEY DISEASE, STAGE 3 (MODERATE) Status: Acute - Plan Coronary artery disease: Post-op 3v CABG. Extubated. On 1 russ of Levophed. Insulin gtt per heart protocol. Post-op care per [facility]. Hypertension: Pos-op hypotension. On low dose levophed. Holding other meds for now. Hyperlipidemia: Patient is on high-dose, high potency statin. He still has a fairly poor cholesterol profile. Continue home meds. Post-op insulin gtt. Diabetes mellitus: Insulin gtt for right now. CKD III: Stable creatinine/GFR compared to baseline.
[2020-05-17 17:01] LABS: Hemoglobin 10.6 g/dL (14.0-18.0)
[2020-05-17 17:16] LABS: Glucose 148 mg/dL (83-110)
[2020-05-17 17:17] LABS: Potassium 3.9 mmol/L (3.5-5.1)
[2020-05-17] MEDS: Potassium Chloride 20 MEQ/100 ML PREMIX BAG IVPB PRN (18:12)
[2020-05-17] MEDS: Atorvastatin Calcium 40 MG TAB PO SCH (20:50)
[2020-05-17] MEDS: Famotidine/PF 20 mg/2ml Vial SLOW IVP SCH (20:50)
[2020-05-17] MEDS: HYDROcodone/Acetaminophen 5/325 mg Tablet PO PRN (22:01)
[2020-05-18] MEDS: Insulin Regular 300 UNITS/3 ML VIAL SC PRN ×2 (00:24→04:07)
[2020-05-18] MEDS: HYDROcodone/Acetaminophen 5/325 mg Tablet PO PRN (02:57)
[2020-05-18 04:49] LABS: #Basophils 0.1 thou/uL (0.0-0.2); #Eosinphils 0.2 thou/uL (0.0-0.7); #Lymphocytes 1.4 thou/uL (1.20-3.40); #Monocytes 0.4 thou/uL (0.11-0.59); #Neutrophils 4.4 thou/uL (1.40-6.50); %Basophils 0.8 % (0.0-1.0); %Eosinophils 2.6 % (0.0-10.0); %Lymphocytes 21.9 % (21.0-51.0); %Monocytes 6.3 % (0.0-10.0); %Neutrophils 68.4 % (42.0-75.0); Hemoglobin 10.9 g/dL (14.0-18.0); Mean Corpuscular HGB CONC 32.2 g/dL (32.0-36.0); Mean Corpuscular Hemoglobin 31.4 pg (27.0-31.0); Mean Corpuscular Volume 97.5 fL (78.0-98.0); Mean Platelet Volume 11.3 fL (7.4-10.4); Platelet Count 148 thou/uL (130-400); RBC Distribution Width 12.7 % (11.5-14.5); Red Blood Cell (RBC) Count 3.46 mill/uL (4.70-6.10); White Blood Cell (WBC) Count 6.4 thou/uL (4.8-10.8)
[2020-05-18 05:06] LABS: Anion Gap 11 mmol/L (10-20); BUN (Urea Nitrogen) 15 mg/dL (8.4-25.7); Carbon Dioxide 23 mmol/L (23-31); Chloride 110 mmol/L (98-107); Sodium 140 mmol/L (136-145)
[2020-05-18 05:07] LABS: Calc. Creatinine Clearance 74 mL/min (70-130); Calcium 8.4 mg/dL (7.8-10.44); Estimated GFR-MDRD 51; Glucose 158 mg/dL (83-110)
[2020-05-18] MEDS: CEFAZOLIN 2 GM in Premix Bag 1 BAG IVPB SCH (06:06)
[2020-05-18] MEDS ORDERED: Dextrose 50% Abboject 50 ML SYRINGE SLOW IVP PRN (06:22)
[2020-05-18] MEDS ORDERED: Dextrose 5% in Water 1,000 ML IV PRN (06:22)
[2020-05-18 06:42] VITALS: BMI 37.9
[2020-05-18] MEDS: Potassium Chloride 20 MEQ/100 ML PREMIX BAG IVPB PRN (06:49)
[2020-05-18] MEDS ORDERED: Carvedilol 3.125 MG TAB PO SCH (08:00)
[2020-05-18] MEDS: Magnesium 2 GM/50 ML 2 GM in Premix Bag 1 BAG IVPB SCH (08:20)
[2020-05-18] MEDS: Fenofibrate Nanocrystallized 145 MG TAB PO SCH (08:22)
[2020-05-18] MEDS: Tamsulosin HCl 0.4 MG CAP PO SCH (08:22)
[2020-05-18] MEDS: Famotidine/PF 20 mg/2ml Vial SLOW IVP SCH ×2 (08:22→21:17)
--- NOTE | 2020-05-18 08:31 | RAD ---
PORTABLE CHEST: DATE: 05/18/2020. PROVIDED CLINICAL HISTORY: Post open heart. FINDINGS: Interval extubation. Additional significant interval change with respect to the prior examination is not apparent. IMPRESSION: As above. POS: MOLLY
[2020-05-18] MEDS: HumaLOG 300 UNITS/3 ML VIAL SC PRN ×3 (08:59→18:06)
[2020-05-18] MEDS ORDERED: Aspirin 325 MG TAB PO SCH (09:00)
[2020-05-18] MEDS: hydrALAZINE 20 MG/ML VIAL SLOW IVP PRN ×2 (09:20→17:23)
[2020-05-18] MEDS ORDERED: Mag-Al 1200 mg/1200 mg/30 ML UDCUP PO PRN (13:54)
[2020-05-18] MEDS ORDERED: Nitroglycerin 0.4 MG TAB (25 Tab Bottle) SL PRN (13:54)
[2020-05-18] MEDS ORDERED: diphenhydrAMINE 25 MG CAP PO PRN (13:54)
[2020-05-18] MEDS ORDERED: Milk Of Magnesia 30 ML UDCUP PO PRN (13:54)
[2020-05-18] MEDS ORDERED: Bisacodyl 10 MG SUPP PR PRN (13:54)
[2020-05-18] MEDS ORDERED: Mineral Oil ENEMA PR PRN (13:54)
[2020-05-18] MEDS ORDERED: Guaifenesin DM 100-10/5 ML UDCUP PO PRN (13:54)
[2020-05-18] MEDS ORDERED: Zolpidem Tartrate 5 MG TAB PO PRN (13:54)
[2020-05-18] MEDS ORDERED: Bisacodyl 5 MG TAB PO PRN (13:54)
[2020-05-18] MEDS ORDERED: Artificial Tears 18 DROP/0.9 ML EA EYE PRN (13:54)
[2020-05-18] MEDS: traMADol HCl 50 MG TAB PO PRN (14:30)
--- NOTE | 2020-05-18 15:37 | PDOC.HOSPP ---
- Subjective Encounter Date: 05/18/20 Subjective: Patient is doing very well today. He ate a good lunch. Not having much pain. - Objective Vital Signs & Weight: Vital Signs (12 hours) Temp Pulse Pulse BP Pulse Ox Pulse Ox 05/18/20 15:00 98.2 F 05/18/20 12:00 98.7 F 05/18/20 10:20 84 152/82 H 93 L 05/18/20 09:20 58 L 05/18/20 08:00 98.5 F 92 L 05/18/20 04:00 98.4 F Weight Weight 242 lb 3.2 oz Most Recent Monitor Data Heart Rate from ECG 84 NIBP 132/110 NIBP BP-Mean 117 Respiration from ECG 20 SpO2 95 I&O: 05/17/20 05/18/20 05/19/20 06:59 06:59 06:59 Intake Total 120 1991.8 468 Output Total 1290 725 Balance 120 701.8 -257 Result Diagrams: 05/18/20 04:09 05/18/20 04:09 Additional Labs: Accuchecks 05/18/20 05/17/20 05/17/20 00:12 22:02 21:02 POC Glucose 130 H 99 119 H 05/17/20 05/17/20 05/17/20 19:57 18:42 17:45 POC Glucose 119 H 115 H 129 H 05/17/20 05/17/20 05/17/20 16:26 14:50 13:41 POC Glucose 174 H 144 H 164 H 05/17/20 05/17/20 05/17/20 11:11 10:39 10:10 POC Glucose 140 H 104 93 05/17/20 05/17/20 05/17/20 09:43 09:20 08:41 POC Glucose 108 128 H 203 H 05/17/20 08:04 POC Glucose 197 H Hospitalist ROS - Medication Medications: Active Medications Generic Name Dose Route Start Last Admin Trade Name Freq PRN Reason Stop Dose Admin Atorvastatin Calcium 80 mg 05/16/20 21:00 05/17/20 20:50 Lipitor PO 80 mg HS DON Administration Famotidine 20 mg 05/17/20 21:00 05/18/20 08:22 Pepcid SLOW IVP 20 mg Q12HR DON Administration Fenofibrate 145 mg 05/16/20 09:00 05/18/20 08:22 Tricor PO 145 mg DAILY DON Administration Hydralazine HCl 10 mg 05/17/20 11:10 05/18/20 09:20 Apresoline SLOW IVP 10 mg Q6H PRN Administration To Maintain SBP< 140mmHG Magnesium Sulfate 2 gm/ Device 50 mls @ 50 mls/hr 05/18/20 09:00 05/18/20 08: 20 IVPB 05/19/20 09:59 50 mls QAM DON Administration Insulin Human Lispro 0 units 05/18/20 06:22 05/18/20 11:08 Humalog SC 4 unit .MODERATE SLIDING SC PRN Administration Moderate Correctional Scale Insulin Human Regular 0 units 05/17/20 11:21 05/18/20 04:07 Humulin R SC 4 unit Q4H PRN Administration POST OP SLIDING SCALE Protocol Potassium Chloride 20 meq 05/17/20 11:10 05/18/20 06:49 Kcl IVPB 20 meq PRN PRN Administration K level </= 4.0 Tamsulosin HCl 0.4 mg 05/16/20 09:00 05/18/20 08:22 Flomax PO 0.4 mg DAILY DON Administration Tramadol HCl 100 mg 05/18/20 13:45 05/18/20 14:30 Ultram PO 100 mg Q6H PRN Administration Severe Pain (7-10) - Exam General Appearance: NAD, awake alert Heart: RRR, no murmur, no gallops, no rubs, normal peripheral pulses Respiratory: CTAB, no wheezes, no rales, no ronchi, normal chest expansion, no tachypnea, normal percussion Gastrointestinal: soft, non-tender, non-distended, normal bowel sounds, no palpable masses, no hepatomegaly, no splenomegaly, no bruit Extremities: no cyanosis, no clubbing, no edema Skin: normal turgor Neurological: no focal deficits Musculoskeletal: normal tone Psychiatric: normal affect, normal behavior, A&O x 3 Hosp A/P (1) CAD (coronary artery disease) Code(s): I25.10 - ATHSCL HEART DISEASE OF [place] CORONARY ARTERY W/O ANG PCTRS Status: Acute (2) Chest pain Code(s): R07.9 - CHEST PAIN, UNSPECIFIED Status: Acute (3) Diabetes Code(s): E11.9 - TYPE 2 DIABETES MELLITUS WITHOUT COMPLICATIONS Status: Acute (4) HTN (hypertension) Code(s): I10 - ESSENTIAL (PRIMARY) HYPERTENSION Status: Acute (5) Hyperlipidemia Code(s): E78.5 - HYPERLIPIDEMIA, UNSPECIFIED Status: Acute (6) CKD (chronic kidney disease), stage III Code(s): N18.3 - CHRONIC KIDNEY DISEASE, STAGE 3 (MODERATE) Status: Acute - Plan Coronary artery disease: Post-op 3v CABG. doing great. [facility] care [facility] Hypertension: BP has stabilized postop. Continue to monitor and resume home meds as needed. Hyperlipidemia: Patient is on high-dose, high potency statin. He still has a fairly poor cholesterol profile. Continue home meds. Diabetes mellitus: Moderate sliding scale. CKD III: Stable creatinine/GFR compared to baseline.
[2020-05-18] MEDS: Carvedilol 6.25 MG TAB PO SCH (16:58)
[2020-05-18] MEDS: Icosapent Ethyl 1 GM CAPSULE PO SCH (18:05)
[2020-05-18] MEDS: Atorvastatin Calcium 40 MG TAB PO SCH (21:17)
[2020-05-18] MEDS: Fentanyl 100 MCG/2 ML VIAL SLOW IVP PRN (21:21)
[2020-05-18] MEDS: Insulin Glargine 10 UNITS in Pre-Filled Syringe 1 EACH SC SCH (21:46)
[2020-05-19] MEDS ORDERED: Furosemide 40 MG/4 ML VIAL SLOW IVP SCH (09:00)
[2020-05-19] MEDS: Famotidine/PF 20 mg/2ml Vial SLOW IVP SCH ×2 (09:07→23:08)
[2020-05-19] MEDS: Oxybutynin ER 5 MG TAB PO SCH (09:08)
[2020-05-19] MEDS: Carvedilol 6.25 MG TAB PO SCH ×2 (09:08→17:33)
[2020-05-19] MEDS: Tamsulosin HCl 0.4 MG CAP PO SCH (09:08)
[2020-05-19] MEDS: Potassium Chloride 10 MEQ TAB PO SCH (09:08)
[2020-05-19] MEDS: Aspirin 325 mg Enteric Coated Tablet PO SCH (09:08)
[2020-05-19] MEDS: Fenofibrate Nanocrystallized 145 MG TAB PO SCH (09:08)
[2020-05-19] MEDS: Furosemide 40 MG TAB PO SCH (09:08)
[2020-05-19] MEDS: Pioglitazone HCl 15 MG TAB PO SCH (09:09)
[2020-05-19] MEDS: Magnesium 2 GM/50 ML 2 GM in Premix Bag 1 BAG IVPB SCH (09:09)
[2020-05-19] MEDS: Fentanyl 100 MCG/2 ML VIAL SLOW IVP PRN (09:12)
[2020-05-19] MEDS: Losartan 25 MG TAB PO SCH (09:41)
[2020-05-19] MEDS: Icosapent Ethyl 1 GM CAPSULE PO SCH ×2 (10:50→17:33)
--- NOTE | 2020-05-19 15:07 | PDOC.HOSPP ---
- Subjective Encounter Date: 05/19/20 Subjective: Doing fairly well postoperatively. Modest pain. Has a good cough. He continues to work on his incentive spirometer. Reports pain in the neck and upper back area likely related to his positioning in the hospital bed. - Objective Vital Signs & Weight: Vital Signs (12 hours) Temp Pulse Pulse Pulse Resp BP BP 05/19/20 11:51 97.7 F 87 16 05/19/20 09:46 92 88 130/60 154/108 H 05/19/20 08:30 98.8 F 97 24 H 05/19/20 03:52 98 F 93 16 BP Pulse Ox Pulse Ox Pulse Ox 05/19/20 11:51 119/58 L 93 L 05/19/20 09:46 92 L 92 L 05/19/20 08:30 134/63 95 05/19/20 03:52 144/62 H 94 L Weight Weight 247 lb 12.8 oz Most Recent Monitor Data Heart Rate from ECG 84 NIBP 132/110 NIBP BP-Mean 117 Respiration from ECG 20 SpO2 95 I&O: 05/18/20 05/19/20 05/20/20 06:59 06:59 06:59 Intake Total 1991.8 828 Output Total 1290 1475 Balance 701.8 -647 Result Diagrams: 05/18/20 04:09 05/18/20 04:09 Additional Labs: Accuchecks 05/19/20 05/19/20 05/18/20 11:01 06:23 21:02 POC Glucose 182 H 148 H 180 H 05/18/20 05/18/20 05/18/20 17:44 11:11 09:02 POC Glucose 165 H 233 H 152 H 05/18/20 04:03 POC Glucose 171 H Hospitalist ROS - Medication Medications: Active Medications Generic Name Dose Route Start Last Admin Trade Name Freq PRN Reason Stop Dose Admin Aspirin 325 mg 05/19/20 09:00 05/19/20 09:08 Ecotrin PO 325 mg DAILY DON Administration Atorvastatin Calcium 80 mg 05/16/20 21:00 05/18/20 21:17 Lipitor PO 80 mg HS DON Administration Carvedilol 6.25 mg 05/18/20 17:00 05/19/20 09:08 Coreg PO 6.25 mg BID-WM DON Administration Famotidine 20 mg 05/17/20 21:00 05/19/20 09:07 Pepcid SLOW IVP 20 mg Q12HR DON Administration Fenofibrate 145 mg 05/16/20 09:00 05/19/20 09:08 Tricor PO 145 mg DAILY DON Administration Furosemide 40 mg 05/19/20 09:00 05/19/20 09:08 Lasix PO 40 mg DAILY DON Administration Glipizide 5 mg 05/18/20 16:30 05/19/20 09:08 Glucotrol Xl PO 5 mg BID-AC DON Administration Hydralazine HCl 10 mg 05/17/20 11:10 05/18/20 17:23 Apresoline SLOW IVP 10 mg Q6H PRN Administration To Maintain SBP< 140mmHG Insulin Glargine 10 units/ 0.1 mls @ 0 mls/hr 05/18/20 21:00 05/18/20 21:46 Miscellaneous Medication SC 0.1 mls HS DON Administration Insulin Human Lispro 0 units 05/18/20 06:22 05/18/20 18:06 Humalog SC 2 unit .MODERATE SLIDING SC PRN Administration Moderate Correctional Scale Insulin Human Regular 0 units 05/17/20 11:21 05/18/20 04:07 Humulin R SC 4 unit Q4H PRN Administration POST OP SLIDING SCALE Protocol Losartan Potassium 50 mg 05/19/20 09:00 05/19/20 09:41 Cozaar PO 50 mg DAILY DON Administration Miscellaneous Medication 2 gm 05/18/20 17:00 05/19/20 10:50 Vascepa PO 2 gm BID-WM DON Administration Oxybutynin Chloride 15 mg 05/19/20 09:00 05/19/20 09:08 Ditropan Xl PO 15 mg DAILY ODN Administration Pioglitazone HCl 15 mg 05/19/20 09:00 05/19/20 09:09 Actos PO 15 mg DAILY DON Administration Potassium Chloride 20 meq 05/17/20 11:10 05/18/20 06:49 Kcl IVPB 20 meq PRN PRN Administration K level </= 4.0 Potassium Chloride 10 meq 05/19/20 08:00 05/19/20 09:08 Klor-Con 10 PO 10 meq QAM-WM DON Administration Tamsulosin HCl 0.4 mg 05/16/20 09:00 07/05/20 09:08 Flomax PO 0.4 mg DAILY DON Administration Tramadol HCl 100 mg 05/18/20 13:45 05/18/20 14:30 Ultram PO 100 mg Q6H PRN Administration Severe Pain (7-10) - Exam General Appearance: NAD, awake alert Heart: RRR, no murmur, no gallops, no rubs, normal peripheral pulses Respiratory: CTAB, no wheezes, no rales, no ronchi, normal chest expansion, no tachypnea, normal percussion Gastrointestinal: soft, non-tender, non-distended, normal bowel sounds, no palpable masses, no hepatomegaly, no splenomegaly, no bruit Extremities: no cyanosis, no clubbing, no edema Skin: normal turgor Neurological: no focal deficits Hosp A/P (1) CAD (coronary artery disease) Code(s): I25.10 - ATHSCL HEART DISEASE OF [place] CORONARY ARTERY W/O ANG PCTRS Status: Acute (2) Chest pain Code(s): R07.9 - CHEST PAIN, UNSPECIFIED Status: Acute (3) Diabetes Code(s): E11.9 - TYPE 2 DIABETES MELLITUS WITHOUT COMPLICATIONS Status: Acute (4) HTN (hypertension) Code(s): I10 - ESSENTIAL (PRIMARY) HYPERTENSION Status: Acute (5) Hyperlipidemia Code(s): E78.5 - HYPERLIPIDEMIA, UNSPECIFIED Status: Acute (6) CKD (chronic kidney disease), stage III Code(s): N18.3 - CHRONIC KIDNEY DISEASE, STAGE 3 (MODERATE) Status: Acute - Plan Coronary artery disease: Post-op 3v CABG. doing great. [facility]. Had his drains removed. Cano catheter out today. Increase activity. Hypertension: BP has stabilized postop. Continue to monitor and resume home meds as needed. Hyperlipidemia: Patient is on high-dose, high potency statin. He still has a fairly poor cholesterol profile. Continue home meds. Diabetes mellitus: Moderate sliding scale. Reasonably well controlled. CKD III: Stable creatinine/GFR compared to baseline.
[2020-05-19] MEDS: HumaLOG 300 UNITS/3 ML VIAL SC PRN (18:41)
[2020-05-19] MEDS: Atorvastatin Calcium 40 MG TAB PO SCH (23:08)
[2020-05-19] MEDS: Insulin Glargine 10 UNITS in Pre-Filled Syringe 1 EACH SC SCH (23:12)
[2020-05-20] MEDS ORDERED: Metolazone 5 MG TAB PO SCH (07:30)
[2020-05-20] MEDS: Famotidine/PF 20 mg/2ml Vial SLOW IVP SCH ×2 (08:09→21:55)
[2020-05-20] MEDS: Potassium Chloride 10 MEQ TAB PO SCH (08:10)
[2020-05-20] MEDS: Pioglitazone HCl 15 MG TAB PO SCH (08:10)
[2020-05-20] MEDS: Tamsulosin HCl 0.4 MG CAP PO SCH (08:10)
[2020-05-20] MEDS: Losartan 25 MG TAB PO SCH (08:10)
[2020-05-20] MEDS: Aspirin 325 mg Enteric Coated Tablet PO SCH (08:10)
[2020-05-20] MEDS: Oxybutynin ER 5 MG TAB PO SCH (08:10)
[2020-05-20] MEDS: Fenofibrate Nanocrystallized 145 MG TAB PO SCH (08:10)
[2020-05-20] MEDS: Furosemide 40 MG TAB PO SCH (08:11)
[2020-05-20] MEDS: Carvedilol 6.25 MG TAB PO SCH ×2 (08:11→18:34)
[2020-05-20] MEDS: Icosapent Ethyl 1 GM CAPSULE PO SCH ×2 (08:13→18:35)
--- NOTE | 2020-05-20 08:20 | PDOC.CPN ---
- Subjective Date: 05/20/20 Time: :22 Interval history: Doing well S/p CABG See on Tele - Objective Allergies/Adverse Reactions: Allergies Allergy/AdvReac Type Severity Reaction Status Date / Time niacin Allergy hot flashes Verified 02/04/20 05:03 [From Niaspan Extended-Release] Visit Medications: Current Medications Acetaminophen (Tylenol) 650 mg PO Q6H PRN PRN Reason: Headache/Fever Or Mild Pain Al Hydroxide/Mg Hydroxide (Maalox) 30 ml PO Q4H PRN PRN Reason: Indigestion Albuterol/Ipratropium (Duoneb) 3 ml NEB [id number] PRN PRN Reason: SHORTNESS OF BREATH Artificial Tears (Tears Naturale) 0 drop EA EYE PRN PRN PRN Reason: Dry Eyes Aspirin (Ecotrin) 325 mg PO DAILY [facility] Last Admin: 05/20/20 08:10 Dose: 325 mg Atorvastatin Calcium (Lipitor) 80 mg PO HS [facility] Last Admin: 05/19/20 23:08 Dose: 80 mg Bisacodyl (Dulcolax) 10 mg PO Q12H PRN PRN Reason: Constipation Bisacodyl (Dulcolax) 10 mg [place] Q12H PRN PRN Reason: Constipation Carvedilol (Coreg) 6.25 mg PO BID-WM [facility] Last Admin: 05/20/20 08:11 Dose: 6.25 mg Dextrose/Water (Dextrose 50%) 25 gm SLOW IVP PRN PRN PRN Reason: Hypoglycemia Diphenhydramine HCl (Benadryl) 25 mg PO Q6H PRN PRN Reason: Itching & Insomnia or Seth Linwood Famotidine (Pepcid) 20 mg SLOW IVP Q12HR [facility] Last Admin: 05/20/20 08:09 Dose: 20 mg Fenofibrate (Tricor) 145 mg PO DAILY [facility] Last Admin: 05/20/20 08:10 Dose: 145 mg Furosemide (Lasix) 40 mg PO DAILY [facility] Last Admin: 05/20/20 08:11 Dose: 40 mg Glipizide (Glucotrol Xl) 5 mg PO BID-AC [facility] Last Admin: 05/20/20 08:11 Dose: 5 mg Glucagon (Glucagon) 1 mg IM PRN PRN PRN Reason: Hypoglycemia Guaifenesin/Dextromethorphan (Robitussin Dm) 15 ml PO Q4H PRN PRN Reason: Cough Hydralazine HCl (Apresoline) 10 mg SLOW IVP Q6H PRN PRN Reason: To Maintain SBP< 140mmHG Last Admin: 05/18/20 17:23 Dose: 10 mg Dextrose/Water (D5w) 1,000 mls @ 0 mls/hr IV .Q0M PRN PRN Reason: Hypoglycemia Insulin Glargine 10 units/ (Miscellaneous Medication) 0.1 mls @ 0 mls/hr SC [facility] Last Admin: 05/19/20 23:12 Dose: 0.1 mls Insulin Human Lispro (Humalog) 0 units SC .MODERATE SLIDING SC PRN PRN Reason: Moderate Correctional Scale Last Admin: 05/19/20 18:41 Dose: 2 unit Insulin Human Regular (Humulin R) 0 units SC Q4H PRN; Protocol PRN Reason: POST OP SLIDING SCALE Last Admin: 05/18/20 04:07 Dose: 4 unit Losartan Potassium (Cozaar) 50 mg PO DAILY [facility] Last Admin: 05/20/20 08:10 Dose: 50 mg Magnesium Hydroxide (Milk Of Magnesium) 30 ml PO Q12H PRN PRN Reason: Constipation Metolazone (Zaroxolyn) 5 mg PO NOW [facility] Stop: 05/20/20 09:30 Last Admin: 05/20/20 08:11 Dose: 5 mg Mineral Oil (Fleet Mineral Oil) 133 ml NJ DAILYPRN PRN PRN Reason: Constipation Miscellaneous Medication (Vascepa) 2 gm [facility] Last Admin: 05/20/20 08:13 Dose: 2 gm Miscellaneous Medication (Post-Op Sliding Scale) 1 each FS ASDIR [facility] Morphine Sulfate (Morphine Sulfate) 2 mg SLOW IVP Q15MIN PRN PRN Reason: Severe Pain (7-10) Nitroglycerin (Nitrostat) 0.4 mg SL Q5MIN PRN PRN Reason: Chest Pain Ondansetron HCl (Zofran) 4 mg IVP Q6H PRN PRN Reason: Nausea/Vomiting Oxybutynin Chloride (Ditropan Xl) 15 mg PO DAILY [facility] Last Admin: 05/20/20 08:10 Dose: 15 mg Pioglitazone HCl (Actos) 15 mg PO DAILY [facility] Last Admin: 05/20/20 08:10 Dose: 15 mg Potassium Chloride (Kcl) 20 meq IVPB PRN PRN PRN Reason: K level </= 4.0 Last Admin: 05/18/20 06:49 Dose: 20 meq Potassium Chloride (Klor-Con 10) 10 meq PO QAM-WM DON Last Admin: 05/20/20 08:10 Dose: 10 meq Promethazine HCl (Phenergan) 6.25 mg IM Q4H PRN PRN Reason: Nausea/Vomiting Sodium Chloride (Flush - Normal Saline) 10 ml IVF PRN PRN PRN Reason: Saline Flush Tamsulosin HCl (Flomax) 0.4 mg PO DAILY [facility] Last Admin: 05/20/20 08:10 Dose: 0.4 mg Tramadol HCl (Ultram) 50 mg PO Q6H PRN PRN Reason: Moderate Pain (4-6) Tramadol HCl (Ultram) 100 mg PO Q6H PRN PRN Reason: Severe Pain (7-10) Last Admin: 05/18/20 14:30 Dose: 100 mg Zolpidem Tartrate (Ambien) 5 mg PO HSPRN PRN PRN Reason: Insomnia Vital Signs & Weight: Vital Signs Temp Pulse Resp BP Pulse Ox 05/20/20 08:07 98.2 F 99 18 114/60 94 L 05/20/20 04:00 99.1 F 89 18 124/60 96 Weight 240 lb 8 oz - Physical Exam General: alert & oriented x3 Neck: supple neck, no masses, no bruit Cardiac: regular rate, regular rhythm Lungs: no wheezes, no rales Neuro: grossly intact Abdomen: unremarkable - Labs Result Diagrams: 05/18/20 04:09 05/18/20 04:09 Troponin/CKMB CK-MB (CK-2) 2.8 ng/mL (0-6.6) 05/15/20 21:32 Troponin I 0.278 ng/mL (< 0.028) H 05/16/20 04:11 - Assessment/Plan Assessment/Plan: Severe CAD Severe PVD s/p CABG 7/6 REC Doing well Statin, BB IS and PT Add low dose BB
--- NOTE | 2020-05-20 10:17 | EKG ---
Test Reason : POST CABG Blood Pressure : / mmHG Vent. Rate : 066 BPM Atrial Rate : 066 BPM P-R Int : 210 ms QRS Dur : 100 ms QT Int : 450 ms P-R-T Axes : 040 -15 004 degrees QTc Int : 471 ms Sinus rhythm with 1st degree A-V block Otherwise normal ECG When compared with ECG of 15-MAY-2020 21:18, (Unconfirmed) QRS duration has increased Minimal criteria for Anterior infarct are no longer Present ST no longer depressed in Lateral leads T wave inversion no longer evident in Lateral leads QT has lengthened Confirmed by ASIM MORRIS (2) on 05/20/2020 10:16:52 AM Referred By: Papito BARKER Confirmed By:ASIM MORRIS
[2020-05-20] MEDS: HumaLOG 300 UNITS/3 ML VIAL SC PRN (12:20)
--- NOTE | 2020-05-20 16:41 | PDOC.HOSPP ---
- Subjective Encounter Date: 05/20/20 Subjective: Had some lightheadedness with sitting up for orthostatic vitals this morning. Was better on retry after a few min. Otherwise, says he ate really well this morning for the first time. - Objective Vital Signs & Weight: Vital Signs (12 hours) Temp Pulse Pulse Pulse Pulse Pulse Resp 05/20/20 15:42 97.8 F 94 20 05/20/20 12:13 98.3 F 96 21 H 05/20/20 08:49 100 100 100 102 H 05/20/20 08:07 98.2 F 99 18 BP BP BP BP BP Pulse Ox Pulse Ox 05/20/20 15:42 110/74 94 L 05/20/20 12:13 96/59 L 95 05/20/20 08:49 91/52 L 101/55 L 90/58 L 113/67 93 L 05/20/20 08:07 114/60 94 L Pulse Ox Pulse Ox Pulse Ox 05/20/20 15:42 05/20/20 12:13 05/20/20 08:49 93 L 93 L 95 05/20/20 08:07 Weight Weight 240 lb 8 oz Most Recent Monitor Data Heart Rate from ECG 84 NIBP 132/110 NIBP BP-Mean 117 Respiration from ECG 20 SpO2 95 I&O: 05/19/20 05/20/20 05/21/20 06:59 06:59 06:59 Intake Total 828 1490 Output Total 1475 3400 Balance -647 -1016 Result Diagrams: 05/18/20 04:09 05/18/20 04:09 Additional Labs: Accuchecks 05/20/20 05/20/20 05/19/20 10:50 06:21 20:43 POC Glucose 298 H 118 H 195 H 05/19/20 17:01 POC Glucose 197 H Hospitalist ROS - Medication Medications: Active Medications Generic Name Dose Route Start Last Admin Trade Name Freq PRN Reason Stop Dose Admin Aspirin 325 mg 05/19/20 09:00 05/20/20 08:10 Ecotrin PO 325 mg DAILY DON Administration Atorvastatin Calcium 80 mg 05/16/20 21:00 05/19/20 23:08 Lipitor PO 80 mg HS DON Administration Carvedilol 6.25 mg 05/18/20 17:00 05/20/20 08:11 Coreg PO 6.25 mg BID-WM DON Administration Famotidine 20 mg 05/17/20 21:00 05/20/20 08:09 Pepcid SLOW IVP 20 mg Q12HR DON Administration Fenofibrate 145 mg 05/16/20 09:00 05/20/20 08:10 Tricor PO 145 mg DAILY DON Administration Furosemide 40 mg 05/19/20 09:00 05/20/20 08:11 Lasix PO 40 mg DAILY DON Administration Glipizide 5 mg 05/18/20 16:30 05/20/20 08:11 Glucotrol Xl PO 5 mg BID-AC DON Administration Hydralazine HCl 10 mg 05/17/20 11:10 05/18/20 17:23 Apresoline SLOW IVP 10 mg Q6H PRN Administration To Maintain SBP< 140mmHG Insulin Glargine 10 units/ 0.1 mls @ 0 mls/hr 05/18/20 21:00 05/19/20 23:12 Miscellaneous Medication SC 0.1 mls HS DON Administration Insulin Human Lispro 0 units 05/18/20 06:22 05/20/20 12:20 Humalog SC 6 unit .MODERATE SLIDING SC PRN Administration Moderate Correctional Scale Insulin Human Regular 0 units 05/17/20 11:21 05/18/20 04:07 Humulin R SC 4 unit Q4H PRN Administration POST OP SLIDING SCALE Protocol Losartan Potassium 50 mg 05/19/20 09:00 05/20/20 08:10 Cozaar PO 50 mg DAILY DON Administration Miscellaneous Medication 2 gm 05/18/20 17:00 05/20/20 08:13 Vascepa PO 2 gm BID-WM DON Administration Oxybutynin Chloride 15 mg 05/19/20 09:00 05/20/20 08:10 Ditropan Xl PO 15 mg DAILY DON Administration Potassium Chloride 20 meq 05/17/20 11:10 05/18/20 06:49 Kcl IVPB 20 meq PRN PRN Administration K level </= 4.0 Potassium Chloride 10 meq 05/19/20 08:00 05/20/20 08:10 Klor-Con 10 PO 10 meq QAM-WM DON Administration Tamsulosin HCl 0.4 mg 05/16/20 09:00 05/20/20 08:10 Flomax PO 0.4 mg DAILY DON Administration Tramadol HCl 100 mg 05/18/20 13:45 05/18/20 14:30 Ultram PO 100 mg Q6H PRN Administration Severe Pain (7-10) - Exam General Appearance: NAD, awake alert Heart: RRR, no murmur, no gallops, no rubs, normal peripheral pulses Respiratory: CTAB, no wheezes, no rales, no ronchi, normal chest expansion, no tachypnea, normal percussion Gastrointestinal: soft, non-tender, non-distended, normal bowel sounds, no palpable masses, no hepatomegaly, no splenomegaly, no bruit Extremities: no cyanosis, no clubbing, no edema Neurological: no focal deficits Musculoskeletal: normal tone Psychiatric: normal affect, normal behavior, A&O x 3 Hosp A/P (1) CAD (coronary artery disease) Code(s): I25.10 - ATHSCL HEART DISEASE OF [place] CORONARY ARTERY W/O ANG PCTRS Status: Acute (2) Chest pain Code(s): R07.9 - CHEST PAIN, UNSPECIFIED Status: Acute (3) Diabetes Code(s): E11.9 - TYPE 2 DIABETES MELLITUS WITHOUT COMPLICATIONS Status: Acute (4) HTN (hypertension) Code(s): I10 - ESSENTIAL (PRIMARY) HYPERTENSION Status: Acute (5) Hyperlipidemia Code(s): E78.5 - HYPERLIPIDEMIA, UNSPECIFIED Status: Acute (6) CKD (chronic kidney disease), stage III Code(s): N18.3 - CHRONIC KIDNEY DISEASE, STAGE 3 (MODERATE) Status: Acute - Plan Coronary artery disease: Post-op 3v CABG. doing great. [facility]. Had his drains removed. Cano catheter out today. Increase activity. Hypertension: BP has stabilized postop. Continue to monitor and resume home meds as needed. BP running on the low side post-CABG. Hyperlipidemia: Patient is on high-dose, high potency statin. He still has a fairly poor cholesterol profile. Continue home meds. Diabetes mellitus: Moderate sliding scale. Reasonably well controlled. DC Pioglitizone as he appears to be on the wet side and on lasix and metolazone. CKD III: Stable creatinine/GFR compared to baseline.
[2020-05-20] MEDS: traMADol HCl 50 MG TAB PO PRN (19:37)
[2020-05-20] MEDS ORDERED: Metoprolol Tartrate 25 MG TAB PO SCH (21:00)
[2020-05-20] MEDS: Atorvastatin Calcium 40 MG TAB PO SCH (21:55)
[2020-05-20] MEDS: Insulin Glargine 10 UNITS in Pre-Filled Syringe 1 EACH SC SCH (21:55)
--- NOTE | 2020-05-21 07:27 | PDOC.CPN ---
- Subjective Date: 05/21/20 Time: 17:08 Interval history: Feels better after lasix Has diuresised - Objective Allergies/Adverse Reactions: Allergies Allergy/AdvReac Type Severity Reaction Status Date / Time niacin Allergy hot flashes Verified 02/04/20 05:03 [From Niaspan Extended-Release] Visit Medications: Current Medications Acetaminophen (Tylenol) 650 mg PO Q6H PRN PRN Reason: Headache/Fever Or Mild Pain Al Hydroxide/Mg Hydroxide (Maalox) 30 ml PO Q4H PRN PRN Reason: Indigestion Albuterol/Ipratropium (Duoneb) 3 ml NEB [id number] PRN PRN Reason: SHORTNESS OF BREATH Artificial Tears (Tears Naturale) 0 drop EA EYE PRN PRN PRN Reason: Dry Eyes Aspirin (Ecotrin) 325 mg PO DAILY [facility] Last Admin: 05/20/20 08:10 Dose: 325 mg Atorvastatin Calcium (Lipitor) 80 mg PO HS [facility] Last Admin: 05/20/20 21:55 Dose: 80 mg Bisacodyl (Dulcolax) 10 mg PO Q12H PRN PRN Reason: Constipation Bisacodyl (Dulcolax) 10 mg MD Q12H PRN PRN Reason: Constipation Carvedilol (Coreg) 6.25 mg PO BID-WM [facility] Last Admin: 05/20/20 18:34 Dose: 6.25 mg Dextrose/Water (Dextrose 50%) 25 gm SLOW IVP PRN PRN PRN Reason: Hypoglycemia Diphenhydramine HCl (Benadryl) 25 mg PO Q6H PRN PRN Reason: Itching & Insomnia or Seth Linwood Famotidine (Pepcid) 20 mg SLOW IVP Q12HR [facility] Last Admin: 05/20/20 21:55 Dose: 20 mg Fenofibrate (Tricor) 145 mg PO DAILY [facility] Last Admin: 05/20/20 08:10 Dose: 145 mg Furosemide (Lasix) 40 mg PO DAILY [facility] Last Admin: 05/20/20 08:11 Dose: 40 mg Glipizide (Glucotrol Xl) 5 mg PO BID-AC [facility] Last Admin: 05/20/20 18:34 Dose: 5 mg Glucagon (Glucagon) 1 mg IM PRN PRN PRN Reason: Hypoglycemia Guaifenesin/Dextromethorphan (Robitussin Dm) 15 ml PO Q4H PRN PRN Reason: Cough Hydralazine HCl (Apresoline) 10 mg SLOW IVP Q6H PRN PRN Reason: To Maintain SBP< 140mmHG Last Admin: 05/18/20 17:23 Dose: 10 mg Dextrose/Water (D5w) 1,000 mls @ 0 mls/hr IV .Q0M PRN PRN Reason: Hypoglycemia Insulin Glargine 10 units/ (Miscellaneous Medication) 0.1 mls @ 0 mls/hr SC [facility] Last Admin: 05/20/20 21:55 Dose: 0.1 mls Insulin Human Lispro (Humalog) 0 units SC .MODERATE SLIDING SC PRN PRN Reason: Moderate Correctional Scale Last Admin: 05/20/20 12:20 Dose: 6 unit Insulin Human Regular (Humulin R) 0 units SC Q4H PRN; Protocol PRN Reason: POST OP SLIDING SCALE Last Admin: 05/18/20 04:07 Dose: 4 unit Losartan Potassium (Cozaar) 50 mg PO DAILY [facility] Last Admin: 05/20/20 08:10 Dose: 50 mg Magnesium Hydroxide (Milk Of Magnesium) 30 ml PO Q12H PRN PRN Reason: Constipation Metolazone (Zaroxolyn) 5 mg PO ONE [facility] Mineral Oil (Fleet Mineral Oil) 133 ml MD DAILYPRN PRN PRN Reason: Constipation Miscellaneous Medication (Vascepa) 2 gm PO BID-[facility] Last Admin: 05/20/20 18:35 Dose: 2 gm Miscellaneous Medication (Post-Op Sliding Scale) 1 each FS ASDIR [facility] Morphine Sulfate (Morphine Sulfate) 2 mg SLOW IVP Q15MIN PRN PRN Reason: Severe Pain (7-10) Nitroglycerin (Nitrostat) 0.4 mg SL Q5MIN PRN PRN Reason: Chest Pain Ondansetron HCl (Zofran) 4 mg IVP Q6H PRN PRN Reason: Nausea/Vomiting Oxybutynin Chloride (Ditropan Xl) 15 mg PO DAILY [facility] Last Admin: 05/20/20 08:10 Dose: 15 mg Potassium Chloride (Kcl) 20 meq IVPB PRN PRN PRN Reason: K level </= 4.0 Last Admin: 05/18/20 06:49 Dose: 20 meq Potassium Chloride (Klor-Con 10) 10 meq PO QAM-WM [facility] Last Admin: 05/20/20 08:10 Dose: 10 meq Promethazine HCl (Phenergan) 6.25 mg IM Q4H PRN PRN Reason: Nausea/Vomiting Sodium Chloride (Flush - Normal Saline) 10 ml IVF PRN PRN PRN Reason: Saline Flush Tamsulosin HCl (Flomax) 0.4 mg PO DAILY [facility] Last Admin: 05/20/20 08:10 Dose: 0.4 mg Tramadol HCl (Ultram) 50 mg PO Q6H PRN PRN Reason: Moderate Pain (4-6) Last Admin: 05/20/20 19:37 Dose: 50 mg Tramadol HCl (Ultram) 100 mg PO Q6H PRN PRN Reason: Severe Pain (7-10) Last Admin: 05/18/20 14:30 Dose: 100 mg Zolpidem Tartrate (Ambien) 5 mg PO HSPRN PRN PRN Reason: Insomnia Vital Signs & Weight: Vital Signs Temp Pulse Resp BP Pulse Ox 05/21/20 07:16 98.0 F 82 18 116/62 93 L 05/21/20 03:30 98.4 F 81 20 110/57 L 92 L 05/21/20 00:00 98.1 F 121 H 23 H 112/63 94 L 05/20/20 20:00 97.4 F L 94 16 113/61 95 Weight 240 lb - Physical Exam General: alert & oriented x3 Neck: no masses, no bruit Cardiac: regular rate, regular rhythm Lungs: decreased breath sounds - Labs Result Diagrams: 05/21/20 08:57 05/21/20 08:56 Troponin/CKMB CK-MB (CK-2) 2.8 ng/mL (0-6.6) 05/15/20 21:32 Troponin I 0.278 ng/mL (< 0.028) H 05/16/20 04:11 - Assessment/Plan Assessment/Plan: Severe CAD Severe PVD s/p CABG 05/21 REC Pt with crackles on exam yesterday given metolazone and lasix check echo Salt and fluid restriction Weight appears near preop weight 05/20 REC Doing well Statin, BB IS and PT Add low dose BB
[2020-05-21] MEDS ORDERED: Metolazone 5 MG TAB PO SCH (07:30)
[2020-05-21] MEDS: Losartan 25 MG TAB PO SCH (08:09)
[2020-05-21] MEDS: Carvedilol 6.25 MG TAB PO SCH ×2 (08:09→16:54)
[2020-05-21] MEDS: Aspirin 325 mg Enteric Coated Tablet PO SCH (08:09)
[2020-05-21] MEDS: Famotidine/PF 20 mg/2ml Vial SLOW IVP SCH ×2 (08:10→21:23)
[2020-05-21] MEDS: Potassium Chloride 10 MEQ TAB PO SCH (08:10)
[2020-05-21] MEDS: Oxybutynin ER 5 MG TAB PO SCH (08:10)
[2020-05-21] MEDS: Fenofibrate Nanocrystallized 145 MG TAB PO SCH (08:10)
[2020-05-21] MEDS: Furosemide 40 MG TAB PO SCH (08:10)
[2020-05-21] MEDS: Tamsulosin HCl 0.4 MG CAP PO SCH (08:10)
[2020-05-21] MEDS: Icosapent Ethyl 1 GM CAPSULE PO SCH ×2 (08:11→16:54)
[2020-05-21 09:07] LABS: #Basophils 0.1 thou/uL (0.0-0.2); #Eosinphils 0.2 thou/uL (0.0-0.7); #Lymphocytes 2.3 thou/uL (1.20-3.40); #Monocytes 0.8 thou/uL (0.11-0.59); #Neutrophils 4.3 thou/uL (1.40-6.50); %Basophils 1.1 % (0.0-1.0); %Lymphocytes 29.5 % (21.0-51.0); %Neutrophils 55.5 % (42.0-75.0); Hemoglobin 12.4 g/dL (14.0-18.0); Mean Corpuscular HGB CONC 31.8 g/dL (32.0-36.0); Mean Corpuscular Hemoglobin 30.3 pg (27.0-31.0); Mean Corpuscular Volume 95.2 fL (78.0-98.0); Mean Platelet Volume 10.2 fL (7.4-10.4); Platelet Count 268 thou/uL (130-400); RBC Distribution Width 12.6 % (11.5-14.5); Red Blood Cell (RBC) Count 4.08 mill/uL (4.70-6.10); White Blood Cell (WBC) Count 7.7 thou/uL (4.8-10.8)
[2020-05-21 09:26] LABS: Anion Gap 16 mmol/L (10-20); BUN (Urea Nitrogen) 18 mg/dL (8.4-25.7); Calc. Creatinine Clearance 73 mL/min (70-130); Calcium 9.5 mg/dL (7.8-10.44); Carbon Dioxide 24 mmol/L (23-31); Chloride 98 mmol/L (98-107); Estimated GFR-MDRD 51; Glucose 157 mg/dL (83-110); Potassium 3.6 mmol/L (3.5-5.1); Sodium 134 mmol/L (136-145)
[2020-05-21] MEDS: traMADol HCl 50 MG TAB PO PRN ×2 (12:36→21:23)
[2020-05-21] MEDS: HumaLOG 300 UNITS/3 ML VIAL SC PRN (12:37)
--- NOTE | 2020-05-21 18:07 | PDOC.HOSPP ---
- Subjective Encounter Date: 05/21/20 Subjective: Doing ok. Still has some DUEÑAS. However, he was able to walk well down the hu today. - Objective Vital Signs & Weight: Vital Signs (12 hours) Temp Pulse Pulse Pulse Pulse Resp BP 05/21/20 16:48 97.6 F 80 17 05/21/20 13:22 82 84 93/54 L 05/21/20 12:36 97.5 F L 83 19 05/21/20 09:10 91 88 05/21/20 07:16 98.0 F 82 18 BP BP BP BP Pulse Ox Pulse Ox Pulse Ox 05/21/20 16:48 118/62 93 L 05/21/20 13:22 93/64 95 95 05/21/20 12:36 113/59 L 96 05/21/20 09:10 116/62 118/63 96 05/21/20 07:16 116/62 93 L Pulse Ox 05/21/20 16:48 05/21/20 13:22 96 05/21/20 12:36 05/21/20 09:10 95 05/21/20 07:16 Weight Weight 240 lb Most Recent Monitor Data Heart Rate from ECG 84 NIBP 132/110 NIBP BP-Mean 117 Respiration from ECG 20 SpO2 95 I&O: 05/20/20 05/21/20 05/22/20 06:59 06:59 06:59 Intake Total 1490 960 Output Total 3400 Balance -1910 960 Result Diagrams: 05/21/20 08:57 05/21/20 08:56 Additional Labs: Accuchecks 05/21/20 05/21/20 05/21/20 17:51 10:13 05:54 POC Glucose 183 H 221 H 126 H 05/20/20 20:48 POC Glucose 205 H Hospitalist ROS - Medication Medications: Active Medications Generic Name Dose Route Start Last Admin Trade Name Freq PRN Reason Stop Dose Admin Aspirin 325 mg 05/19/20 09:00 05/21/20 08:09 Ecotrin PO 325 mg DAILY DON Administration Atorvastatin Calcium 80 mg 05/16/20 21:00 05/20/20 21:55 Lipitor PO 80 mg HS DON Administration Carvedilol 6.25 mg 05/18/20 17:00 05/21/20 16:54 Coreg PO 6.25 mg BID-WM DON Administration Famotidine 20 mg 05/17/20 21:00 05/21/20 08:10 Pepcid SLOW IVP 20 mg Q12HR DON Administration Fenofibrate 145 mg 05/16/20 09:00 05/21/20 08:10 Tricor PO 145 mg DAILY DON Administration Furosemide 40 mg 05/19/20 09:00 05/21/20 08:10 Lasix PO 40 mg DAILY DON Administration Glipizide 5 mg 05/18/20 16:30 05/21/20 16:54 Glucotrol Xl PO 5 mg BID-AC DON Administration Hydralazine HCl 10 mg 05/17/20 11:10 05/18/20 17:23 Apresoline SLOW IVP 10 mg Q6H PRN Administration To Maintain SBP< 140mmHG Insulin Glargine 10 units/ 0.1 mls @ 0 mls/hr 05/18/20 21:00 05/20/20 21:55 Miscellaneous Medication SC 0.1 mls HS DON Administration Insulin Human Lispro 0 units 05/18/20 06:22 05/21/20 12:37 Humalog SC 4 unit .MODERATE SLIDING SC PRN Administration Moderate Correctional Scale Insulin Human Regular 0 units 05/17/20 11:21 05/18/20 04:07 Humulin R SC 4 unit Q4H PRN Administration POST OP SLIDING SCALE Protocol Losartan Potassium 50 mg 05/19/20 09:00 05/21/20 08:09 Cozaar PO 50 mg DAILY DON Administration Miscellaneous Medication 2 gm 05/18/20 17:00 05/21/20 16:54 Vascepa PO 2 gm BID-WM DON Administration Oxybutynin Chloride 15 mg 05/19/20 09:00 05/21/20 08:10 Ditropan Xl PO 15 mg DAILY DON Administration Potassium Chloride 20 meq 05/17/20 11:10 05/18/20 06:49 Kcl IVPB 20 meq PRN PRN Administration K level </= 4.0 Potassium Chloride 10 meq 05/19/20 08:00 05/21/20 08:10 Klor-Con 10 PO 10 meq QAM-WM DON Administration Tamsulosin HCl 0.4 mg 05/16/20 09:00 05/21/20 08:10 Flomax PO 0.4 mg DAILY DON Administration Tramadol HCl 50 mg 05/18/20 13:45 05/21/20 12:36 Ultram PO 50 mg Q6H PRN Administration Moderate Pain (4-6) Tramadol HCl 100 mg 05/18/20 13:45 05/18/20 14:30 Ultram PO 100 mg Q6H PRN Administration Severe Pain (7-10) - Exam General Appearance: NAD, awake alert Heart: RRR, no murmur, no gallops, no rubs, normal peripheral pulses Respiratory: CTAB, no wheezes, no rales, no ronchi, normal chest expansion, no tachypnea, normal percussion Gastrointestinal: soft, non-tender, non-distended, normal bowel sounds, no palpable masses, no hepatomegaly, no splenomegaly, no bruit Extremities: no cyanosis, no clubbing, no edema Skin: normal turgor Neurological: no focal deficits Hosp A/P (1) CAD (coronary artery disease) Code(s): I25.10 - ATHSCL HEART DISEASE OF [place] CORONARY ARTERY W/O ANG PCTRS Status: Acute (2) Chest pain Code(s): R07.9 - CHEST PAIN, UNSPECIFIED Status: Acute (3) Diabetes Code(s): E11.9 - TYPE 2 DIABETES MELLITUS WITHOUT COMPLICATIONS Status: Acute (4) HTN (hypertension) Code(s): I10 - ESSENTIAL (PRIMARY) HYPERTENSION Status: Acute (5) Hyperlipidemia Code(s): E78.5 - HYPERLIPIDEMIA, UNSPECIFIED Status: Acute (6) CKD (chronic kidney disease), stage III Code(s): N18.3 - CHRONIC KIDNEY DISEASE, STAGE 3 (MODERATE) Status: Acute (7) Acute respiratory failure with hypoxia Code(s): J96.01 - ACUTE RESPIRATORY FAILURE WITH HYPOXIA Status: Acute - Plan Coronary artery disease: Post-op 3v CABG. doing great. Post-op care per [facility]. Increase activity. Acute hypoxic respiratory failure: Likely mild systolic failure in the setting of the CABG. Continue diuresis. Weaning oxygen. Down to one LPM. Hypertension: BP has stabilized postop. Continue to monitor and resume home meds as needed. BP running on the low side post-CABG. Hyperlipidemia: Patient is on high-dose, high potency statin. He still has a fairly poor cholesterol profile. Continue home meds. Diabetes mellitus: Moderate sliding scale. Reasonably well controlled. DC Pioglitizone as he appears to be on the wet side and on lasix and metolazone. CKD III: Stable creatinine/GFR compared to baseline.
[2020-05-21] MEDS: Insulin Glargine 10 UNITS in Pre-Filled Syringe 1 EACH SC SCH (21:23)
[2020-05-21] MEDS: Atorvastatin Calcium 40 MG TAB PO SCH (21:23)
[2020-05-22] MEDS ORDERED: Metolazone 5 MG TAB PO SCH (06:00)
[2020-05-22] MEDS: Aspirin 325 mg Enteric Coated Tablet PO SCH (08:53)
[2020-05-22] MEDS: Oxybutynin ER 5 MG TAB PO SCH (08:53)
[2020-05-22] MEDS: Potassium Chloride 10 MEQ TAB PO SCH (08:54)
[2020-05-22] MEDS: Furosemide 40 MG TAB PO SCH (08:54)
[2020-05-22] MEDS: Tamsulosin HCl 0.4 MG CAP PO SCH (08:54)
[2020-05-22] MEDS: Fenofibrate Nanocrystallized 145 MG TAB PO SCH (08:54)
[2020-05-22] MEDS: Carvedilol 6.25 MG TAB PO SCH ×2 (08:54→15:49)
[2020-05-22] MEDS: Famotidine/PF 20 mg/2ml Vial SLOW IVP SCH (08:54)
[2020-05-22] MEDS: Losartan 25 MG TAB PO SCH (08:55)
[2020-05-22] MEDS: Icosapent Ethyl 1 GM CAPSULE PO SCH ×2 (08:55→15:49)
[2020-05-22] MEDS: HumaLOG 300 UNITS/3 ML VIAL SC PRN (12:27)
--- NOTE | 2020-05-22 13:06 | PDOC.HOSPP ---
- Subjective Encounter Date: 05/22/20 Subjective: Patient seen and examined bedside this morning continues to report improvement in symptoms reported shortness of breath has improved denies any chest pain nausea or vomiting no significant overnight events - Objective Vital Signs & Weight: Vital Signs (12 hours) Temp Pulse Pulse Pulse Resp BP BP 05/22/20 11:24 98.3 F 76 20 05/22/20 08:48 83 81 103/59 L 128/62 05/22/20 07:52 98.0 F 79 20 05/22/20 03:03 98.5 F 77 18 BP BP Pulse Ox Pulse Ox Pulse Ox Pulse Ox 05/22/20 11:24 103/55 L 97 05/22/20 08:48 97 97 95 05/22/20 07:52 128/62 90 L 05/22/20 03:03 108/53 L 97 Weight Weight 242 lb Most Recent Monitor Data Heart Rate from ECG 84 NIBP 132/110 NIBP BP-Mean 117 Respiration from ECG 20 SpO2 95 I&O: 05/21/20 05/22/20 05/23/20 06:59 06:59 06:59 Intake Total 960 1170 Output Total 1950 400 Balance 960 -780 -400 Result Diagrams: 05/21/20 08:57 05/21/20 08:56 Additional Labs: Accuchecks 05/22/20 05/22/20 05/21/20 10:56 05:43 20:07 POC Glucose 233 H 113 H 206 H 05/21/20 17:51 POC Glucose 183 H Hospitalist ROS - Medication Medications: Active Medications Generic Name Dose Route Start Last Admin Trade Name Marcelino PRN Reason Stop Dose Admin Aspirin 325 mg 05/19/20 09:00 05/22/20 08:53 Ecotrin PO 325 mg DAILY DON Administration Atorvastatin Calcium 80 mg 05/16/20 21:00 05/21/20 21:23 Lipitor PO 80 mg HS DON Administration Carvedilol 6.25 mg 05/18/20 17:00 05/22/20 08:54 Coreg PO 6.25 mg BID-WM DON Administration Famotidine 20 mg 05/17/20 21:00 05/22/20 08:54 Pepcid SLOW IVP 20 mg Q12HR DON Administration Fenofibrate 145 mg 05/16/20 09:00 05/22/20 08:54 Tricor PO 145 mg DAILY DON Administration Furosemide 40 mg 05/19/20 09:00 05/22/20 08:54 Lasix PO 40 mg DAILY DON Administration Glipizide 5 mg 05/18/20 16:30 05/22/20 08:55 Glucotrol Xl PO 5 mg BID-AC DON Administration Hydralazine HCl 10 mg 05/17/20 11:10 05/18/20 17:23 Apresoline SLOW IVP 10 mg Q6H PRN Administration To Maintain SBP< 140mmHG Insulin Glargine 10 units/ 0.1 mls @ 0 mls/hr 05/18/20 21:00 05/21/20 21:23 Miscellaneous Medication SC 0.1 mls HS DON Administration Insulin Human Lispro 0 units 05/18/20 06:22 05/22/20 12:27 Humalog SC 4 unit .MODERATE SLIDING SC PRN Administration Moderate Correctional Scale Insulin Human Regular 0 units 05/17/20 11:21 05/18/20 04:07 Humulin R SC 4 unit Q4H PRN Administration POST OP SLIDING SCALE Protocol Losartan Potassium 50 mg 05/19/20 09:00 05/22/20 08:55 Cozaar PO 50 mg DAILY DON Administration Miscellaneous Medication 2 gm 05/18/20 17:00 05/22/20 08:55 Vascepa PO 2 gm BID-WM DON Administration Oxybutynin Chloride 15 mg 05/19/20 09:00 05/22/20 08:53 Ditropan Xl PO 15 mg DAILY DON Administration Potassium Chloride 20 meq 05/17/20 11:10 05/18/20 06:49 Kcl IVPB 20 meq PRN PRN Administration K level </= 4.0 Potassium Chloride 10 meq 05/19/20 08:00 05/22/20 08:54 Klor-Con 10 PO 10 meq QAM-WM DON Administration Sodium Chloride 10 ml 05/17/20 11:10 05/22/20 08:55 Flush - Normal Saline IVF 10 ml PRN PRN Administration Saline Flush Tamsulosin HCl 0.4 mg 05/16/20 09:00 05/22/20 08:54 Flomax PO 0.4 mg DAILY DON Administration Tramadol HCl 50 mg 05/18/20 13:45 05/21/20 12:36 Ultram PO 50 mg Q6H PRN Administration Moderate Pain (4-6) Tramadol HCl 100 mg 05/18/20 13:45 05/21/20 21:23 Ultram PO 100 mg Q6H PRN Administration Severe Pain (7-10) - Exam General Appearance: NAD, awake alert Eye: PERRL, anicteric sclera Neck: supple Heart: RRR Heart - other findings: Surgical site clean Respiratory: CTAB Gastrointestinal: soft Hosp A/P (1) Acute respiratory failure with hypoxia Code(s): J96.01 - ACUTE RESPIRATORY FAILURE WITH HYPOXIA Status: Acute (2) CAD (coronary artery disease) Code(s): I25.10 - ATHSCL HEART DISEASE OF [place] CORONARY ARTERY W/O ANG PCTRS Status: Acute (3) CKD (chronic kidney disease), stage III Code(s): N18.3 - CHRONIC KIDNEY DISEASE, STAGE 3 (MODERATE) Status: Acute (4) Chest pain Code(s): R07.9 - CHEST PAIN, UNSPECIFIED Status: Acute (5) Diabetes Code(s): E11.9 - TYPE 2 DIABETES MELLITUS WITHOUT COMPLICATIONS Status: Acute (6) HTN (hypertension) Code(s): I10 - ESSENTIAL (PRIMARY) HYPERTENSION Status: Acute (7) Hyperlipidemia Code(s): E78.5 - HYPERLIPIDEMIA, UNSPECIFIED Status: Acute - Plan Coronary artery disease: Post-op 3v CABG. doing great. [facility] care per [facility]. Increase activity. Patient denies any chest pain today surgical site clean continue with medical management for now as per cardiology Acute hypoxic respiratory failure: Likely mild systolic failure in the setting of the CABG. Continue diuresis. Weaning oxygen. Currently on room air we will encourage mobility and check for ambulation study Hypertension: BP has stabilized postop. Continue to monitor and resume home meds as needed. BP running on the low side post-CABG. Hyperlipidemia: Patient is on high-dose, high potency statin. He still has a fairly poor cholesterol profile. Continue home meds. Diabetes mellitus: Moderate sliding scale. Reasonably well controlled. DC Pioglitizone as he appears to be on the wet side and on lasix and metolazone. CKD III: Stable creatinine/GFR compared to baseline. Continue to monitor avoid nephrotoxins Disposition once cleared by cardiology and cardiothoracic surgeon once his oxygenation improved with ambulation hopefully in the next 24 hours
--- NOTE | 2020-05-22 14:30 | DIS ---
DATE OF ADMISSION: 05/17/2020 DATE OF DISCHARGE: 05/22/2020 DIAGNOSES: 1. Coronary artery disease. 2. Diabetes mellitus. 3. Hypertension. 4. Dyslipidemia. PROCEDURES: 1. Cardiac catheterization. 2. Coronary artery bypass grafting x3 -. a. Left internal mammary to left anterior descending. b. Reverse saphenous vein to obtuse marginal. c. Reverse saphenous vein to posterior descending artery. DESCRIPTION OF HOSPITAL STAY: Mr. Reese was admitted from home by Dr. Larsen after having a troponin checked in the office that was positive. He underwent cardiac catheterization the following morning. He was taken for coronary artery bypass grafting as above. Postoperatively, he has done well without rhythm disturbance. At the time of discharge, he is ambulatory, tolerating a regular diet, having good bowel and bladder function. Incisions are clean and dry without evidence of infection. DISCHARGE MEDICATIONS: Include: 1. Amitriptyline 25 mg daily. 2. Atorvastatin 80 mg at bedtime. 3. Aspirin 325 mg daily. 4. Coreg 6.25 mg b.i.d. 5. Fenofibrate 130 mg daily. 6. Glipizide 5 mg b.i.d. 7. Metformin 1000 mg daily. 8. Lovaza 1 g b.i.d. 9. Omeprazole 40 mg daily. 10. Ditropan XL 15 mg daily. 11. Actos 15 mg daily. 12. DHEA 25 mg q.a.m. 13. Flomax 0.4 mg daily. 14. Lasix 40 mg daily. 15. Potassium 10 mEq daily. 16. Cozaar 50 mg daily. 17. Tramadol 50 mg one to two q.6 hours p.r.n. pain. FOLLOWUP: Follow up is with me in 2 weeks, Dr. Larsen in a month. Job ID: [id number]
[2020-05-22 15:13] LABS: #Basophils 0.1 thou/uL (0.0-0.2); #Eosinphils 0.4 thou/uL (0.0-0.7); #Lymphocytes 2.3 thou/uL (1.20-3.40); #Monocytes 0.8 thou/uL (0.11-0.59); #Neutrophils 3.9 thou/uL (1.40-6.50); %Basophils 0.9 % (0.0-1.0); %Eosinophils 5.5 % (0.0-10.0); %Lymphocytes 30.6 % (21.0-51.0); %Monocytes 11.3 % (0.0-10.0); %Neutrophils 51.7 % (42.0-75.0); Hemoglobin 11.4 g/dL (14.0-18.0); Mean Corpuscular HGB CONC 33.4 g/dL (32.0-36.0); Mean Corpuscular Volume 95.8 fL (78.0-98.0); Mean Platelet Volume 9.9 fL (7.4-10.4); Platelet Count 250 thou/uL (130-400); RBC Distribution Width 12.2 % (11.5-14.5); Red Blood Cell (RBC) Count 3.57 mill/uL (4.70-6.10); White Blood Cell (WBC) Count 7.5 thou/uL (4.8-10.8)
[2020-05-22 15:50] LABS: Anion Gap 12 mmol/L (10-20); BUN (Urea Nitrogen) 26 mg/dL (8.4-25.7); Calc. Creatinine Clearance 51 mL/min (70-130); Calcium 9.1 mg/dL (7.8-10.44); Carbon Dioxide 31 mmol/L (23-31); Chloride 90 mmol/L (98-107); Estimated GFR-MDRD 33; Glucose 230 mg/dL (83-110); Potassium 3.3 mmol/L (3.5-5.1); Sodium 130 mmol/L (136-145)
[2020-05-22] MEDS: traMADol HCl 50 MG TAB PO PRN (15:50)
[2020-05-22 16:21] VITALS: BP 107/58; TEMP 97.8
--- NOTE | 2020-05-22 18:19 | PRG ---
DATE OF SERVICE: 05/22/2020 SUBJECTIVE: Mr. Reese is doing better, less shortness of breath. He did receive Lasix yesterday with diuresis. OBJECTIVE: VITAL SIGNS: Blood pressure 107/58, pulse 82, and respirations 20. LUNGS: Clear to auscultation. HEART: Regular rate and rhythm. ABDOMEN: Soft, nontender, nondistended. EXTREMITIES: No edema. IMPRESSION: 1. Coronary artery disease. 2. Status post bypass surgery. 3. Shortness of breath. RECOMMENDATIONS: Currently on atorvastatin in addition to aspirin and carvedilol. We will continue p.o. Lasix with fluid and salt restriction. Continue incentive spirometry and ambulation. Job ID: [id number]
== END 2020-05-22 18:02 | disposition home or self-care (01) | DRG 233 ==
LOC: ERS 21:06 → 2NO 22:56 → CCU 05-17 07:25 → OBSVTOIN 05-17 11:10 → 2NO 05-18 16:25
PROVIDERS: ADMIT Internal Medicine; ATTEND Internal Medicine
PROC: 02100Z9 Bypass Coronary Artery, One Artery from Left Internal Mammary, Open Approach (ICD-10-PCS; principal; 2020-05-17)
PROC: 4A023N7 Measurement of Cardiac Sampling and Pressure, Left Heart, Percutaneous Approach (ICD-10-PCS; 2020-05-17)
PROC: 021109W Bypass Coronary Artery, Two Arteries from Aorta with Autologous Venous Tissue, Open Approach (ICD-10-PCS; 2020-05-17)
PROC: 5A1221Z Performance of Cardiac Output, Continuous (ICD-10-PCS; 2020-05-17)
PROC: B2111ZZ Fluoroscopy of Multiple Coronary Arteries using Low Osmolar Contrast (ICD-10-PCS; 2020-05-17)
DX: I25.10 Atherosclerotic heart disease of native coronary artery without angina pectoris (principal); J96.01 Acute respiratory failure with hypoxia; I50.22 Chronic systolic (congestive) heart failure; I13.0 Hypertensive heart and chronic kidney disease with heart failure and stage 1 through stage 4 chronic kidney disease, or unspecified chronic kidney disease; E78.5 Hyperlipidemia, unspecified; N18.3 Chronic kidney disease, stage 3 (moderate); E66.01 Morbid (severe) obesity due to excess calories; E11.22 Type 2 diabetes mellitus with diabetic chronic kidney disease; I25.2 Old myocardial infarction; Z90.49 Acquired absence of other specified parts of digestive tract; Z98.42 Cataract extraction status, left eye; Z98.41 Cataract extraction status, right eye; Z68.37 Body mass index [BMI] 37.0-37.9, adult
CPT/HCPCS: 36415; 36416; 36430; 71045; 76942; 80048; 80053; 80061; 82553; 82805; 83036; 83880; 84484; 85025; 85610; 85730; 86850; 86900; 86901; 88184; 88185; 88307; 93005; 93010; 93306; 93458; 93798; 94002; 96372; G0378; J0171; J0360; J0690; J1642; J1644; J1650; J1815; J1885; J1940; J2001; J2250; J2405; J2440; J2704; J2720; J3010; J3370; J3475; J3480; J3490; P9045; Q9967; S0017; S0020; S0028

== ENCOUNTER 2020-11-06 15:14 | Inpatient (IN) | payer MEDICARE, BC ==
[2020-11-06 19:23] LABS: #Basophils 0.1 thou/uL (0.0-0.2); #Eosinphils 0.2 thou/uL (0.0-0.7); #Lymphocytes 2.7 thou/uL (1.20-3.40); #Monocytes 0.7 thou/uL (0.11-0.59); %Lymphocytes 28.1 % (21.0-51.0); %Monocytes 7.6 % (0.0-10.0); %Neutrophils 61.3 % (42.0-75.0); Hemoglobin 15.3 g/dL (14.0-18.0); Mean Corpuscular HGB CONC 33.8 g/dL (32.0-36.0); Mean Corpuscular Hemoglobin 32.4 pg (27.0-31.0); Mean Corpuscular Volume 95.8 fL (78.0-98.0); Mean Platelet Volume 10.6 fL (7.4-10.4); Platelet Count 204 thou/uL (130-400); RBC Distribution Width 14.1 % (11.5-14.5); Red Blood Cell (RBC) Count 4.73 mill/uL (4.70-6.10); White Blood Cell (WBC) Count 9.8 thou/uL (4.8-10.8)
[2020-11-06 19:32] LABS: Bilirubin Negative (Negative); Blood, Urine Negative (Negative); Clarity Clear (Clear); Glucose, Urine (Dipstick) Greater than 1000 mg/dL (Negative); Ketone, Urine 10 mg/dL (Negative); Leukocyte Negative Leu/uL (Negative); Nitrite Negative (Negative); Protein, Urine (Dipstick) 100 mg/dL (Neg-Trace); RBC/HPF 0-3 HPF (0-3); Specific Gravity, Urine 1.029 (1.002-1.036); Squamous Epithelial 0-3 HPF (0-3); Urobilinogen Normal mg/dL (Less than 2); WBC/HPF 0-3 HPF (0-3)
[2020-11-06 19:33] LABS: Bacteria/HPF 1+ HPF (None Seen)
[2020-11-06 19:47] LABS: ALT (SGPT) 26 U/L (8-55); AST (SGOT) 22 U/L (5-34); Albumin 4.3 g/dL (3.4-4.8); Alkaline Phosphatase 75 U/L (40-110); Anion Gap 18 mmol/L (10-20); BUN (Urea Nitrogen) 26 mg/dL (8.4-25.7); Calc. Creatinine Clearance 0 mL/min (70-130); Calcium 10.2 mg/dL (7.8-10.44); Carbon Dioxide 23 mmol/L (23-31); Chloride 96 mmol/L (98-107); Globulin 3.5 g/dL (2.4-3.5); Glucose 240 mg/dL (83-110); Lipase 14 U/L (8-78); Potassium 4.2 mmol/L (3.5-5.1); Protein, Total 7.8 g/dL (5.8-8.1); Sodium 133 mmol/L (136-145)
--- NOTE | 2020-11-06 21:08 | RAD ---
EXAM: Single view of the chest HISTORY: Altered mental status and nausea/vomiting COMPARISON: 05/18/2020 FINDINGS: Single view of the chest shows a normal sized cardiomediastinal silhouette. Atheroscleroti c calcifications are seen in the aorta. The patient is status post sternotomy. There is stable elevation of the right hemidiaphragm. There is no evidence of consolidation, mass, or pleural effusio n. Degenerative changes are seen in the spine. There is absence of the distal right clavicle. IMPRESSION: No evidence of acute cardiopulmonary disease
--- NOTE | 2020-11-06 21:47 | CT ---
EXAM: CT brain without contrast HISTORY: Altered mental status COMPARISON: MRI brain 09/16/2009 TECHNIQUE: Multiple contiguous axial images were obtained and a CT of the brain without contrast. FINDINGS: The brain is normal in morphology and attenuation without focal lesions or confluent areas of infarction. There is no evidence of hydrocephalus, intracranial hemorrhage, or extra-axial fluid collection. The calvarium and overlying soft tissues are unremarkable. The visualized paranasal sinuses and masto id air cells are well aerated. IMPRESSION: No evidence of acute intracranial abnormality
[2020-11-06] MEDS ORDERED: hydrALAZINE 20 MG/ML VIAL ONE (21:53)
[2020-11-06] MEDS ORDERED: Carvedilol 6.25 MG TAB PO SCH (22:00)
[2020-11-06] MEDS ORDERED: Losartan 25 MG TAB PO SCH (22:00)
[2020-11-06 22:08] LABS: Base Excess-Venous 3.1 mmol/L (-2.0 to 3.0); Bicarbonate (HCO3v) 27.9 mmol/L (22.0-28.0); CO2 Tension (PvCO2) 42.5 mmHg (40.0-50.0); Chloride 95 mmol/L (98-107); Hemoglobin - Calc 14.6 g/dL (14.0-18.0); Sodium 131 mmol/L (138-145); T. Carbon Dioxide 29.2 mmol/L (22.0-28.0); vO2 Saturation-calc 52.7 % (60.0-85.0)
[2020-11-06 23:37] LABS: Troponin I Less than 0.010 ng/mL (< 0.028)
--- NOTE | 2020-11-06 23:40 | PDOC.FPRHP ---
- History of Present Illness Chief Complaint: AMS History of Present Illness: Pt is a 75 yo M with PMH of chronic back pain, diabetes, CAD s/p triple bypass, HTN, HLD, CKD who presents to the ED with a one day history of vomiting and being altered. Patient is unable to answer questions 2/2 being altered. Questions answered by . Apparently patient follows with Dr Bai for chronic back pain and his Belbuca just was increased yesterday from 600mg daily to 900 mg daily. He also took Tramadol yesterday, he takes it PRN. Since this increase, he started vomiting and therefore was unable to take his daily medications for his chronic conditions. Today, the vomiting is improved but is concerned about his altered state. At baseline, he is usually very sharp and A&Ox3. He is able to manage his daily PO medications, etc independently. But today, he seems to be more sleepy and unable to communicate purposefully. ED Course: Losartan, Carvedilol, Hydralazine - Allergies/Adverse Reactions Allergies Allergy/AdvReac Type Severity Reaction Status Date / Time niacin Allergy hot flashes Verified 02/04/20 05:03 [From N[facility] Extended-Release] - Home Medications Medication Instructions Recorded Confirmed Type Atorvastatin Calcium 80 mg PO HS 10/09/14 11/07/20 History Carvedilol 6.25 mg PO BID 10/09/14 11/07/20 History Fenofibrate,Micronized 130 mg PO DAILY 10/09/14 11/07/20 History [Fenofibrate] Pioglitazone HCl [Actos] 15 mg PO DAILY 10/09/14 11/07/20 History Tamsulosin HCl [Flomax] 0.4 mg PO DAILY 10/09/14 11/07/20 History glipiZIDE [Glucotrol XL] 5 mg PO BID 10/09/14 11/07/20 History metFORMIN HCl 1,000 unit PO DAILY 10/09/14 11/07/20 History traMADol HCl [Tramadol HCl] 1 - 2 tablet PO Q6HR PRN 10/09/14 11/07/20 History [place]-3 Acid Ethyl Esters [Lovaza] 1 gm PO BID 03/15/15 11/07/20 History Amitriptyline HCl 1 tab PO DAILY 12/24/17 11/07/20 History Omeprazole 1 cap PO DAILY 12/24/17 11/07/20 History Prasterone (DHEA) [DHEA] 1 cap PO QAM 12/24/17 11/07/20 History Oxybutynin ER [Ditropan XL] 15 mg PO DAILY 05/16/20 11/07/20 History Aspirin [Ecotrin Regular Strength] 325 mg PO DAILY #120 tab 05/22/20 11/07/20 Rx Furosemide [Lasix] 40 mg PO DAILY #90 tab 05/22/20 11/07/20 Rx Potassium Chloride [Klor-Con 10] 10 meq PO QAM-WM #90 tab 05/22/20 11/07/20 Rx Buprenorphine HCl [Belbuca] 150 mcg BC BID 11/07/20 11/07/20 History Losartan [Cozaar] 25 mg PO BID 11/07/20 11/07/20 History Pregabalin [Lyrica] 50 mg PO SEEPHYS 11/07/20 11/07/20 History - History PMHx: chronic back pain, diabetes, CAD s/p triple bypass, HTN, HLD, CKD PSHx: cholecystectomy, s/p 3 back surgeries FHx: father- of heart attack at age 46 Social: denies tobacco, alcohol, drugs - Review of Systems ROS unobtainable: due to mental status - Vital signs BP: 229/121 HR: 89 RR: 18 Tmax: 98.5 Pox: 99% on RA Wt: 111kg - Physical Exam -Constitutional: not alert and oriented. A&Ox0 HEENT: normocephalic and atraumatic, EOMI, conjunctiva clear Neck: supple Heart: RRR, normal S1/S2, pulses present, no edema Lungs: CTAB, no respiratory distress Abdomen: soft, non-tender -Abdomen: repetitive belching Musculoskeletal: normal tone, ROM grossly normal Neurological: no focal deficit, CN II-XII intact, normal sensation Skin: no rash/lesions, capillary refill <2 seconds Heme/Lymphatic: no unusual bruising or bleeding -Psychiatric: unable to assess 2/2 mental status FMR H&P: Results - Labs Result Diagrams: 11/07/20 04:37 11/07/20 04:37 Lab results: WBC 9.8 thou/uL (4.8-10.8) 11/06/20 19:12 Hgb 15.3 g/dL (14.0-18.0) 11/06/20 19:12 Hct 45.3 % (42.0-52.0) 11/06/20 19:12 MCV 95.8 fL (78.0-98.0) 11/06/20 19:12 Plt Count 204 thou/uL (130-400) 11/06/20 19:12 Neutrophils % 61.3 % (42.0-75.0) 11/06/20 19:12 VBG pCO2 42.5 mmHg (40.0-50.0) 11/06/20 22:04 VBG pO2 27.4 mmHg (35.0-45.0) L 11/06/20 22:04 Sodium 133 mmol/L (136-145) L 11/06/20 19:12 Potassium 4.2 mmol/L (3.5-5.1) 11/06/20 19:12 Chloride 96 mmol/L (98-107) L 11/06/20 19:12 Carbon Dioxide 23 mmol/L (23-31) 11/06/20 19:12 BUN 26 mg/dL (8.4-25.7) H 11/06/20 19:12 Creatinine 1.33 mg/dL (0.7-1.3) H 11/06/20 19:12 Glucose 240 mg/dL (83-110) H 11/06/20 19:12 Lactic Acid 2.1 mmol/L (0.5-2.2) 11/06/20 21:27 Calcium 10.2 mg/dL (7.8-10.44) 11/06/20 19:12 Total Bilirubin 1.0 mg/dL (0.2-1.2) 11/06/20 19:12 AST 22 U/L (5-34) 11/06/20 19:12 ALT 26 U/L (8-55) 11/06/20 19:12 Alkaline Phosphatase 75 U/L (40-110) 11/06/20 19:12 Creatine Kinase 74 U/L (30-200) 11/06/20 21:27 Serum Total Protein 7.8 g/dL (5.8-8.1) 11/06/20 19:12 Albumin 4.3 g/dL (3.4-4.8) 12/23/20 19:12 Lipase 14 U/L (8-78) 11/06/20 19:12 Urine Ketones 10 mg/dL (Negative) A 11/06/20 19:05 Urine Blood Negative (Negative) 11/06/20 19:05 Urine Nitrite Negative (Negative) 11/06/20 19:05 Ur Leukocyte Esterase Negative Andrei/uL (Negative) 11/06/20 19:05 Urine RBC 0-3 HPF (0-3) 11/06/20 19:05 Urine WBC 0-3 HPF (0-3) 11/06/20 19:05 Ur Squamous Epith Cells 0-3 HPF (0-3) 11/06/20 19:05 Urine Bacteria 1+ HPF (None Seen) A 11/06/20 19:05 FMR H&P: A/P - Plan #encephalopathy likely 2/2 medication -patient had taken 900mg of Belbuca which is significantly more than his normal dose -CT brain negative -will hold patient's home Belbuca -lab work including TSH and electrolytes are non contributory -at this time, do not think there is an indication for Narcan, but will consider based on clinical picture -will continue to monitor patient with continuous O2 -UDS pending -1:1 sitter ordered -reorient patient as able #HTN urgency -aware, improved s/p meds in ED -see plan for HTN below -Hydralazine PRN #chronic back pain -aware, avoid opioids or medications that increase risk for altered mentation #diabetes -aware, continue home meds #CAD s/p triple bypass -aware, continue home meds #HTN -aware, continue home meds #CKD -aware, continue to monitor and try to avoid nephrotoxic agents Slight ketosis likely 2/2 decreased PO intake and not a DKA picture given normal bicarb Dispo: admit to tele obs. Anticipated LOS < 48 hours Diet: NPO Fluids: LR @ 125mL/hr DVT ppx: Lovenox Code: DNAR PCP: CC FMR H&P: Upper Level - Plan Date/Time: 11/06/20 8660 ITony DO, have evaluated this patient and agree with findings/plan as outlined by corporate legal intern resident. Pertinent changes/additions are listed here. This is 75 yo male with a pmh of chronic low back pain, CAD, CKD 3, DM2, HTN, and HLD who presents to the ER with a cc of nausea, vomiting, and confusion. His is present and is the primary historian reporting that he starting having these symptoms after he increased his Belbuca from 300mg BID to 450mg BID yesterday morning. This was following a visit to his pain doctor, Dr. Bai. Since vomiting, he has been unable to take PO including his medications except for his pain meds. His reports that at baseline, he is AAOx3. She states that his pain regimen also includes Lyrica 300mg daily as well as tramdol 50mg PRN for break through. She states that he did take tramadol last night. She denies any sick contacts or other complaints from the pt. The 's main concern was that he would be in pain and did not seem to grasp the gravity of her 's confusion and potential for decompensation. Objective: General: Agitated, not following commands, pt took multiple nurses to lay back in the stretcher for them to apply restraints HEENT: AT/NC Cardio: Per tele, RRR. Pt was found prone at the time of exam Lungs: CTAB Neuro: Pt is uncooperative for any exam. Pt appears to be moving all extremities without difficulty Extremities: trace edema in BLE A/P Acute metabolic encephalopathy 2/2 opioid overdose -Admit to tele -4 point restraints and a sitter given his confusion -Pt has improved with serial checks and the decision to not give narcan was made due to his improvement -We will need to touch base with Dr. Bai in the morning to update as well as look for recommendations -VBG is not concerning for CO2 retention at the time of admission, I would have a low threshold for given Narcan if his condition worsens overnight -CT brain negative for acute intracranial processes Chronic low back pain -He is current taking Lyrica 300mg per day, Tramadol 50mg PRN for break through pain, and Belbuca 900 mg/day, increased from 600mg per day. These medications are being held until pt is closer to his baseline, AAOx3 CKD3 -Appears near baseline, monitor with BMPs CAD s/p 3 vessel CABG on 05/17/20 -Troponin negative, EKG NSR without signs of ST changes, CXR shows no acute cardiopulmonary processes DM2 -Continue home meds, diabetic protocols per orders Hypertensive urgency -Resolved after pt received home BP meds in the ER HLD -Continue home meds Code: DNR Prophylaxis: lovenox Family: at bedside. By our discussion, she was more concerned about whether or not he would be in pain than the fact that he could stop breathing due to his opioid overdose. We discussed at length our concern with her 's current state. I believe there is generally some poor health literacy at play Fluids: LR 120 ml/hr Diet: NPO Disposition: DC in 3-4 days PCP: Dr. Chao, [facility] Pain specialist Dr. Bai Addendum - Attending - Attending Attestation Date/Time: 11/07/20 2523 I personally evaluated the patient and discussed the management with the team. I agree with the History, Examination, Assessment and Plan documented above with any addition or exceptions noted below.
[2020-11-06] MEDS ORDERED: Senokot S 8.6-50 MG TAB PO PRN (23:47)
[2020-11-06] MEDS ORDERED: Acetaminophen 325 MG TAB PO PRN (23:47)
[2020-11-06] MEDS ORDERED: Ondansetron PF 4 MG/2 ML Vial IVP PRN (23:47)
[2020-11-07] MEDS ORDERED: Aspirin Chewable 81 MG TAB ONE (00:25)
[2020-11-07 01:19] VITALS: BMI 35.6
[2020-11-07 01:58] LABS: Lactic Acid 1.6 mmol/L (0.5-2.2)
[2020-11-07] MEDS ORDERED: hydrALAZINE 20 MG/ML VIAL SLOW IVP PRN (01:58)
[2020-11-07] MEDS ORDERED: hydrOXYzine 25 MG/ML VIAL IM PRN (02:04)
[2020-11-07 02:07] LABS: Troponin I 0.014 ng/mL (< 0.028)
[2020-11-07 02:33] LABS: Amphetamine Not Detected (NotDetected); Barbiturates Screen Not Detected (NotDetected); Benzodiazepine Screen Not Detected (NotDetected); Cocaine Metabolite Screen Not Detected (NotDetected); Medtox Control Line Valid? VALID (VALID); Medtox Reader # READER 4; Methadone Not Detected (NotDetected); Methamphetamine Not Detected (NotDetected); Opiate Screen Not Detected (NotDetected); Oxycodone Screen Not Detected (NotDetected); Phencyclidine (PCP) Not Detected (NotDetected); THC/Cannabinoid Screen Not Detected (NotDetected); Tricyclic Screen Detected (NotDetected)
[2020-11-07] MEDS ORDERED: Dextrose 50% Abboject 50 ML SYRINGE SLOW IVP PRN (02:49)
[2020-11-07] MEDS ORDERED: Dextrose 5% in Water 1,000 ML IV PRN (02:49)
[2020-11-07] MEDS ORDERED: HumaLOG 300 UNITS/3 ML VIAL SC PRN ×2 (02:49)
[2020-11-07] MEDS: Lactated Ringer's 1,000 ML IV SCH ×3 (02:59→18:15)
[2020-11-07 04:59] LABS: #Basophils 0.1 thou/uL (0.0-0.2); #Eosinphils 0.1 thou/uL (0.0-0.7); #Lymphocytes 2.7 thou/uL (1.20-3.40); #Monocytes 1.2 thou/uL (0.11-0.59); #Neutrophils 7.9 thou/uL (1.40-6.50); %Basophils 0.8 % (0.0-1.0); %Eosinophils 1.1 % (0.0-10.0); %Lymphocytes 22.3 % (21.0-51.0); %Monocytes 9.9 % (0.0-10.0); %Neutrophils 65.9 % (42.0-75.0); Hemoglobin 15.6 g/dL (14.0-18.0); Mean Corpuscular HGB CONC 33.9 g/dL (32.0-36.0); Mean Corpuscular Hemoglobin 32.1 pg (27.0-31.0); Mean Corpuscular Volume 94.7 fL (78.0-98.0); Mean Platelet Volume 10.8 fL (7.4-10.4); Platelet Count 196 thou/uL (130-400); RBC Distribution Width 13.9 % (11.5-14.5); Red Blood Cell (RBC) Count 4.84 mill/uL (4.70-6.10)
[2020-11-07] MEDS ORDERED: HumaLOG 300 UNITS/3 ML VIAL SC SCH (05:00)
[2020-11-07 05:32] LABS: ALT (SGPT) 27 U/L (8-55); AST (SGOT) 29 U/L (5-34); Albumin 4.1 g/dL (3.4-4.8); Alkaline Phosphatase 72 U/L (40-110); Anion Gap 19 mmol/L (10-20); BUN (Urea Nitrogen) 27 mg/dL (8.4-25.7); Bilirubin, Total 1.2 mg/dL (0.2-1.2); Calc. Creatinine Clearance 77 mL/min (70-130); Calcium 9.9 mg/dL (7.8-10.44); Carbon Dioxide 22 mmol/L (23-31); Chloride 97 mmol/L (98-107); Globulin 3.4 g/dL (2.4-3.5); Glucose 209 mg/dL (83-110); Potassium 3.8 mmol/L (3.5-5.1); Protein, Total 7.5 g/dL (5.8-8.1); Sodium 134 mmol/L (136-145)
[2020-11-07 06:05] LABS: SARS-CoV-2 MS2 Positive; SARS-CoV-2 N Gene Negative; SARS-CoV-2 S Gene Negative; SARS-CoV-2 by NAA Not Detected (NotDetected); SARS-CoV-2 orf1ab Negative
--- NOTE | 2020-11-07 06:49 | PDOC.FM ---
- Subjective Subjective: Mr. Reese is not very conversive this morning. He was sleeping but easy to arouse and says "yes" to all my questions, but does not give any other answers so A&O is difficult to determine. - Objective Vital Signs & Weight: Vital Signs (12 hours) Temp Pulse Resp BP Pulse Ox 11/07/20 04:00 98.5 F 109 H 24 H 148/105 H 96 11/07/20 02:54 97 11/06/20 23:47 97.6 F 105 H 24 H 184/95 H 98 Weight Weight 103.419 kg I&O: 11/05/20 11/06/20 11/07/20 06:59 06:59 06:59 Intake Total 970 Output Total 175 Balance 795 Result Diagrams: 11/07/20 04:37 11/07/20 04:37 Phys Exam - Physical Examination Constitutional: NAD Neck: supple Respiratory: clear to auscultation bilateral Cardiovascular: RRR, no significant murmur Gastrointestinal: soft, no distention, positive bowel sounds Musculoskeletal: no edema Skin: no rash Dx/Plan - Plan Plan: This is a 75M presenting for AMS and V x1d after increase in Belbuca dose. Encephalopathy likely 2/2 medication -patient's Belbuca dose was increased from 600 to 900mg -CT brain negative -will hold Belbuca -consider use of Narcan -will continue to monitor patient with continuous O2 -UDS pos only for TCAs, which he takes at home -1:1 sitter ordered -reorient patient as able HTN urgency Hx of HTN -improved s/p meds in ED -continue home meds -Hydralazine PRN -monitor vitals Chronic back pain -avoid opioids or medications that increase risk for altered mentation -takes Tramadol prn at home Diabetes -Slight ketosis likely 2/2 decreased PO intake. Likely not DKA given nml bicarb and AG 14 -continue home meds -ACHS checks -hypoglycemia protocol CAD s/p triple bypass -continue home meds CKD -continue to monitor and try to avoid nephrotoxic agents Dispo: admit to tele obs. Anticipated LOS < 48 hours Diet: NPO Fluids: LR @ 125mL/hr DVT ppx: Lovenox Code: DNAR PCP: LORENA
[2020-11-07] MEDS: Potassium Chloride 10 MEQ TAB PO SCH (08:04)
[2020-11-07] MEDS: Carvedilol 6.25 MG TAB PO SCH ×2 (08:04→20:46)
[2020-11-07] MEDS: Fish Oil 1,000 MG CAP PO SCH ×2 (08:04→20:51)
[2020-11-07] MEDS: Amitriptyline HCl 25 MG TAB PO SCH (08:04)
[2020-11-07] MEDS: Aspirin 325 mg Enteric Coated Tablet PO SCH (08:04)
[2020-11-07] MEDS: Fenofibrate Nanocrystallized 145 MG TAB PO SCH (08:04)
[2020-11-07] MEDS: Oxybutynin ER 5 MG TAB PO SCH (08:05)
[2020-11-07] MEDS: Tamsulosin HCl 0.4 MG CAP PO SCH (08:05)
[2020-11-07] MEDS: Furosemide 40 MG TAB PO SCH (08:05)
[2020-11-07] MEDS: Pioglitazone HCl 15 MG TAB PO SCH (08:05)
[2020-11-07] MEDS: Losartan 25 MG TAB PO SCH ×2 (08:05→20:51)
[2020-11-07] MEDS: metFORMIN 500 MG TAB PO SCH (08:05)
[2020-11-07] MEDS: Pregabalin 50 MG CAP PO SCH (08:05)
[2020-11-07] MEDS: Enoxaparin Sodium 40 MG/0.4 ML SYRINGE SC SCH (08:06)
[2020-11-07] MEDS: Lidocaine 5% Patch TD SCH (08:06)
[2020-11-07] MEDS ORDERED: PRASTERONE 25 MG PO SCH (09:00)
[2020-11-07] MEDS ORDERED: Labetalol HCl 100 MG/20 ML VIAL SLOW IVP SCH (09:45)
[2020-11-07] MEDS ORDERED: FLU VACC QS2020-21(65YR UP)/PF 240 MCG/0.7 ML SYRINGE IM ONE (21:00)
[2020-11-07] MEDS ORDERED: Atorvastatin Calcium 40 MG TAB PO SCH (21:00)
[2020-11-07] MEDS ORDERED: Lidocaine Patch Removal 1 EACH TOP SCH (21:00)
[2020-11-07] MEDS ORDERED: Pregabalin 50 MG CAP PO SCH (21:00)
[2020-11-08] MEDS: Lactated Ringer's 1,000 ML IV SCH (04:30)
--- NOTE | 2020-11-08 05:51 | PDOC.FM ---
- Subjective Subjective: Mr. Reese is doing well this morning and appears to be close to his baseline. He is A&Ox3, is speaking normally/coherently, and is in a lot of pain. He states he is not very hungry this morning but is willing to attempt to eat this morning. His is present and agrees that he is essentially back to normal. - Objective Vital Signs & Weight: Vital Signs (12 hours) Temp Pulse Resp BP BP Pulse Ox 11/07/20 20:46 188/89 H 11/07/20 20:00 99.2 F 94 20 188/89 H 96 Weight Weight 103.419 kg I&O: 11/06/20 11/07/20 11/08/20 06:59 06:59 06:59 Intake Total 970 150 Output Total 175 Balance 795 150 Result Diagrams: 11/08/20 06:05 11/08/20 06:05 Phys Exam - Physical Examination Acute distress d/t back pain Neck: supple, full ROM Respiratory: clear to auscultation bilateral Cardiovascular: RRR, no significant murmur Musculoskeletal: no edema Neurological: non-focal, moves all 4 limbs Psychiatric: normal affect, A&O x 3 Skin: no rash Dx/Plan - Plan Plan: This is a 75M presenting for AMS and V x1d after increase in Belbuca dose. Encephalopathy likely 2/2 medication -patient's Belbuca dose was increased from 600 to 900mg -pt A&Ox3 today -restraints removed -pt will attempt to eat this am HTN urgency Hx of HTN -improved s/p meds in ED -continue home meds -Hydralazine PRN -monitor vitals Chronic back pain -avoid opioids or medications that increase risk for altered mentation -continue home Tramadol -k-pad/ice pack, Voltaren gel -consider adding flexeril for muscular pain associated with restraint use -Sees Dr. Bai who has ordered an MRI and set up an appt with Dr. Nam for eval Diabetes -Slight ketosis likely 2/2 decreased PO intake. Likely not DKA given nml bicarb and AG 14 -continue home meds -ACHS checks -hypoglycemia protocol CAD s/p triple bypass -continue home meds CKD -continue to monitor and try to avoid nephrotoxic agents Dispo: admit to tele obs. D/c today if pt able to tolerate PO Diet: NPO Fluids: LR @ 125mL/hr DVT ppx: Lovenox Code: KAE PCP: LORENA
[2020-11-08 06:18] LABS: #Basophils 0.1 thou/uL (0.0-0.2); #Eosinphils 0.1 thou/uL (0.0-0.7); #Lymphocytes 2.6 thou/uL (1.20-3.40); #Monocytes 0.8 thou/uL (0.11-0.59); %Basophils 1.3 % (0.0-1.0); %Eosinophils 1.9 % (0.0-10.0); %Lymphocytes 33.9 % (21.0-51.0); %Neutrophils 52.8 % (42.0-75.0); Hemoglobin 13.7 g/dL (14.0-18.0); Mean Corpuscular HGB CONC 33.8 g/dL (32.0-36.0); Mean Corpuscular Hemoglobin 31.9 pg (27.0-31.0); Mean Corpuscular Volume 94.1 fL (78.0-98.0); Mean Platelet Volume 10.3 fL (7.4-10.4); Platelet Count 169 thou/uL (130-400); RBC Distribution Width 13.7 % (11.5-14.5); Red Blood Cell (RBC) Count 4.29 mill/uL (4.70-6.10); White Blood Cell (WBC) Count 7.6 thou/uL (4.8-10.8)
[2020-11-08 06:36] LABS: Anion Gap 14 mmol/L (10-20); BUN (Urea Nitrogen) 25 mg/dL (8.4-25.7); Calc. Creatinine Clearance 81 mL/min (70-130); Carbon Dioxide 23 mmol/L (23-31); Chloride 102 mmol/L (98-107); Glucose 196 mg/dL (83-110); Potassium 3.7 mmol/L (3.5-5.1); Sodium 135 mmol/L (136-145)
[2020-11-08] MEDS: Lidocaine 5% Patch TD SCH (06:38)
[2020-11-08] MEDS ORDERED: traMADol HCl 50 MG TAB PO PRN (08:34)
[2020-11-08] MEDS ORDERED: Diclofenac 1% 100 GM GEL TP SCH (09:00)
[2020-11-08] MEDS: Amitriptyline HCl 25 MG TAB PO SCH (09:15)
[2020-11-08] MEDS: Potassium Chloride 10 MEQ TAB PO SCH (09:15)
[2020-11-08] MEDS: Aspirin 325 mg Enteric Coated Tablet PO SCH (09:15)
[2020-11-08] MEDS: Furosemide 40 MG TAB PO SCH (09:16)
[2020-11-08] MEDS: Losartan 25 MG TAB PO SCH (09:16)
[2020-11-08] MEDS: Tamsulosin HCl 0.4 MG CAP PO SCH (09:16)
[2020-11-08] MEDS: Fenofibrate Nanocrystallized 145 MG TAB PO SCH (09:16)
[2020-11-08] MEDS: metFORMIN 500 MG TAB PO SCH (09:16)
[2020-11-08] MEDS: Pioglitazone HCl 15 MG TAB PO SCH (09:16)
[2020-11-08] MEDS: Pregabalin 50 MG CAP PO SCH (09:17)
[2020-11-08] MEDS: Carvedilol 6.25 MG TAB PO SCH (09:17)
[2020-11-08] MEDS: Fish Oil 1,000 MG CAP PO SCH (09:18)
[2020-11-08] MEDS: Enoxaparin Sodium 40 MG/0.4 ML SYRINGE SC SCH (09:18)
[2020-11-08] MEDS: Oxybutynin ER 5 MG TAB PO SCH (09:19)
[2020-11-08 11:54] VITALS: BP 108/54; TEMP 98
--- NOTE | 2020-11-09 20:49 | DIS ---
DATE OF ADMISSION: 11/07/2020 DATE OF DISCHARGE: 11/08/2020 RESIDENT: Temitope Larsen MD ADMITTING ATTENDING: Jhon Sanderson MD DISCHARGE ATTENDING: Andres Baumann MD CONSULTS: None. PROCEDURES: 1. Chest x-ray (11/06)-noncontributory. 2. Brain CT also (11/06)-noncontributory. PRIMARY DIAGNOSES: Hypertensive urgency, encephalopathy, and vomiting 2/2 medication. SECONDARY DIAGNOSES: Chronic back pain, diabetes, coronary artery disease/status post triple bypass, hypertension, chronic kidney disease, and HLD. DISCHARGE MEDICATIONS: 1. Belbuca 300 mcg buccal b.i.d. (previous dose). 2. Voltaren gel 2 g topical q.i.d. p.r.n. 3. Tramadol 50 mg 1-2 tablets p.o. q.6h p.r.n. 4. Flomax 0.4 mg p.o. daily. 5. Pioglitazone 15 mg p.o. daily. 6. Fenofibrate 130 mg p.o. daily. 7. Coreg 6.25 mg p.o. b.i.d. 8. Glipizide 5 mg p.o. b.i.d. 9. Metformin 1000 mg p.o. daily. 10. Atorvastatin 80 mg p.o. at bedtime. 11. Watson-3 of 1 g p.o. b.i.d. 12. Omeprazole 40 mg one capsule p.o. daily. 13. Amitriptyline 25 mg one tablet p.o. daily. 14. one capsule p.o. q.a.m. 15. Oxybutynin 15 mg p.o. daily. 16. Aspirin 325 mg p.o. daily. 17. Furosemide 40 mg p.o. daily. 18. Potassium chloride 10 mEq p.o. q.a.m.-WM. 19. Pregabalin 50 mg p.o. one tablet q.a.m., two tablets at bedtime. 20. Losartan 25 mg p.o. b.i.d. DISCONTINUED MEDICATIONS: Belbuca 450 mcg buccal b.i.d. HISTORY OF PRESENT ILLNESS/HOSPITAL COURSE: This is a 75-year-old male with a past medical history of chronic back pain, who was brought to the ED by his after a 1-day history of vomiting and altered mental status. The patient follows with Dr. Bai for his back pain and his Belbuca had just been increased from 600 mcg daily to 900 mcg daily. In addition to that, he has tramadol p.r.n., which he took that same day. These symptoms started after the patient took this increased dose. CT of the brain was negative, all other lab work including TSH and electrolytes were within normal limits, UDS was positive only for TCA, which is the medication he takes. On admission, he was essentially unresponsive and combative, so he required nonviolent restraints. On arrival to the ED, he was also found to be in hypertensive urgency with a blood pressure of 229/121. He was given losartan, Coreg, hydralazine in the ED and then his home hypertension medications were continued. He was also found to have a mild ketosis on his urinalysis that was suspected to be due to decreased p.o. intake. He had a normal bicarb and an anion gap of 14, as well as a blood sugar in the low 200s, so DKA was ruled out. By the morning of 10/09, having held his Belbuca and tramadol since admission, he was back to A and O x3, able to answer questions, and able to tolerate p.o. He states he has an MRI scheduled through Dr. Bai as well as an appointment made to be evaluated by Dr. Nam, Neurosurgery. DISPOSITION: Stable. DISCHARGE INSTRUCTIONS: 1. Location: Home. 2. Diet: Diabetic diet. 3. Activity: As tolerated. 4. Followup: The patient is encouraged to follow up with his PCP, Dr. Chao in 7-10 days. 5. The patient is encouraged to follow up with Dr. Bai as soon as possible to discuss his pain management regimen. 6. The patient is encouraged to attend his MRI appointment and appointment to establish care with Dr. Nam. Job ID: [id number] [facility]AMPUSKaila
== END 2020-11-08 12:40 | disposition home or self-care (01) | DRG 917 ==
LOC: ERS 15:14 → 2NO 22:51 → OBSVTOIN 11-07 13:54 → 2NO 11-07 19:56
PROVIDERS: ADMIT Student in an Organized Health Care Education/Training Program; ATTEND Student in an Organized Health Care Education/Training Program
DX: T40.601A Poisoning by unspecified narcotics, accidental (unintentional), initial encounter (principal); G92 Toxic encephalopathy; Z66 Do not resuscitate; Z20.828 Contact with and (suspected) exposure to other viral communicable diseases; I16.0 Hypertensive urgency; G89.29 Other chronic pain; M54.9 Dorsalgia, unspecified; I25.10 Atherosclerotic heart disease of native coronary artery without angina pectoris; N18.30 Chronic kidney disease, stage 3 unspecified; E11.22 Type 2 diabetes mellitus with diabetic chronic kidney disease; E78.5 Hyperlipidemia, unspecified; I12.9 Hypertensive chronic kidney disease with stage 1 through stage 4 chronic kidney disease, or unspecified chronic kidney disease; Z95.1 Presence of aortocoronary bypass graft; Z88.8 Allergy status to other drugs, medicaments and biological substances; Z79.84 Long term (current) use of oral hypoglycemic drugs; Z79.82 Long term (current) use of aspirin; Z79.899 Other long term (current) drug therapy; Z90.49 Acquired absence of other specified parts of digestive tract; Z95.5 Presence of coronary angioplasty implant and graft; Z98.49 Cataract extraction status, unspecified eye
CPT/HCPCS: 36415; 36416; 70450; 71045; 80048; 80053; 80306; 81003; 81015; 82010; 82330; 82550; 82803; 83605; 83690; 84443; 84484; 85025; 87635; 93005; 94760; 96374; J0360; J1650; J3410; U0003

== ENCOUNTER 2020-11-12 09:45 | Outpatient (CLI) | payer MEDICARE, BC ==
--- NOTE | 2020-11-12 11:16 | MRI ---
MR the lumbar spine without contrast: 11/12/2020 History: Worsening right lower extremity radiculopathy COMPARISON: 06/21/2019 TECHNIQUE: Multiplanar multisequence MR images were obtained of lumbar spine without IV contrast FINDINGS: On the basis of 5 lumbar type vertebral bodies, conus medullaris terminates at [id number] level. Sagittal STIR imaging demonstrates no focal area of osseous marrow edema. T12-L1:Disc space narrowing. Mild bilateral facet hypertrophy. No significant central canal or neural foraminal stenosis. L1-2:There is disc space narrowing with disc desiccation, vacuum disc formation, and anterior osteoph yte formation. Disc bulge and bilateral facet hypertrophy noted with mild central canal stenosis. No significant neural foraminal stenosis. No significant interval change. L2-3:Disc space narrowing with disc desiccation, anterior osteophyte formation, and prominent degener ative endplate change. Stable retrolisthesis measuring 5-6 mm. Mild/moderate stable central canal stenosis. Stable moderate/severe right neural foraminal stenosis. No significant left neural foramina l stenosis. No significant interval change. L3-4:There is disc space narrowing with disc desiccation and disc bulge. Prominent bilateral facet hy pertrophy is present. There is severe central canal stenosis and bilateral neural foraminal stenosis which has progressed significantly when compared to the prior examination. L4-5:There is disc space narrowing with disc desiccation, vacuum disc formation, and mild disc bulge. There is prominent bilateral facet hypertrophy with fluid within the facet joints, left greater than right. Probable small lateral left-sided synovial cyst. Bilateral posterior synovial facet joint cysts. Moderate central canal stenosis, stable. Moderate/severe left neural foraminal stenosis, stable. L5-S1:Bilateral facet hypertrophy present. There is a new synovial cyst posterior to the left facet j oint measuring 1.4 cm. There is disc space narrowing with disc desiccation, mild disc bulge, and vacuum disc formation. No significant central canal stenosis. Mild right neural foraminal stenosis. Image retroperitoneal structures demonstrateno acute findings. IMPRESSION: Severe multilevel degenerative change within the lumbar spine, progressed since the prior examination , particularly at the L3-4 level.
--- NOTE | 2020-11-12 12:41 | MRI ---
MRI CERVICAL SPINE WITHOUT CONTRAST: INDICATION: Myelopathy. Neck pain. COMPARISON: Comparison is made to MRI of cervical spine 10/19/2008. FINDINGS: Motion artifact degrades all sequences. Sagittal images were especially degraded. Cervical vertebrae maintain height and alignment. Moderate degenerative changes are noted. Loss of disk space at C5-6 and C6-7. Anterior osteophytes. C2-3: No significant abnormality. C3-4: Posterior disk bulge and spondylosis efface the anterior subarachnoid space and abut the anter ior cord. Mild left foraminal narrowing. C4-5: Minimal disk bulge and spondylosis. Anterior subarachnoid space is mildly effaced. No centra l canal or foraminal stenosis apparent. There is mild left foraminal narrowing due to uncinate hyper trophy. C5-6: Prominent posterior disk and spondylitic changes compress the anterior cord producing flatteni ng of the cord centrally and to the right. Bilateral foraminal stenosis due to hypertrophic change. C6-7: The disk bulge and spondylosis abuts the anterior cord without significant compression. Evide nce of bilateral foraminal narrowing. Cord signal appears normally preserved. IMPRESSION: Exam is degraded due to motion artifact. Posterior spondylosis and disk-osteophyte complex is promin ent at C5-6 with cord compression and foraminal stenosis noted above. Consider CT scan of cervical s pine to reduce motion artifact and better definite osseous structures and spondylosis. POS: AGW
== END 2020-11-12 09:46 | disposition home or self-care (01) ==
LOC: TBSIIMAG 09:45
PROVIDERS: ATTEND Anesthesiology
DX: M47.26 Other spondylosis with radiculopathy, lumbar region (principal); G95.89 Other specified diseases of spinal cord; M47.812 Spondylosis without myelopathy or radiculopathy, cervical region; M25.78 Osteophyte, vertebrae; M48.02 Spinal stenosis, cervical region
CPT/HCPCS: 72141; 72148

== ENCOUNTER 2020-11-25 11:41 | Emergency (ER) | payer MEDICARE, BC ==
--- NOTE | 2020-11-25 12:42 | CT ---
CT BRAIN NONCONTRAST: DATE: 11/25/2020 HISTORY: 75-year-old male with altered mental status FINDINGS: There is no evidence of acute intra-axial or extra-axial hemorrhage. There is no midline shift or any other mass effect. There is no extra-axial fluid collection. There is no evidence of obstructive hydrocephalus. Calvarium is intact. IMPRESSION: No acute intracranial findings.
[2020-11-25 13:10] LABS: #Basophils 0.1 thou/uL (0.0-0.2); #Eosinphils 0.1 thou/uL (0.0-0.7); #Lymphocytes 2.4 thou/uL (1.20-3.40); #Monocytes 0.7 thou/uL (0.11-0.59); #Neutrophils 4.8 thou/uL (1.40-6.50); %Basophils 1.3 % (0.0-1.0); %Eosinophils 1.3 % (0.0-10.0); %Lymphocytes 29.3 % (21.0-51.0); %Monocytes 8.6 % (0.0-10.0); %Neutrophils 59.5 % (42.0-75.0); Hemoglobin 14.3 g/dL (14.0-18.0); Mean Corpuscular Hemoglobin 32.1 pg (27.0-31.0); Mean Corpuscular Volume 94.6 fL (78.0-98.0); Mean Platelet Volume 10.3 fL (7.4-10.4); Platelet Count 213 thou/uL (130-400); Red Blood Cell (RBC) Count 4.46 mill/uL (4.70-6.10)
[2020-11-25 13:31] LABS: ALT (SGPT) 23 U/L (8-55); AST (SGOT) 22 U/L (5-34); Albumin 3.8 g/dL (3.4-4.8); Alkaline Phosphatase 70 U/L (40-110); Anion Gap 18 mmol/L (10-20); BUN (Urea Nitrogen) 14 mg/dL (8.4-25.7); Bilirubin, Total 0.7 mg/dL (0.2-1.2); Calc. Creatinine Clearance 0 mL/min (70-130); Calcium 10.3 mg/dL (7.8-10.44); Carbon Dioxide 22 mmol/L (23-31); Chloride 101 mmol/L (98-107); Globulin 3.2 g/dL (2.4-3.5); Glucose 218 mg/dL (83-110); Lipase 10 U/L (8-78); Potassium 4.2 mmol/L (3.5-5.1); Sodium 137 mmol/L (136-145)
[2020-11-25 15:09] LABS: Bacteria/HPF None Seen HPF (None Seen); Bilirubin Negative (Negative); Blood, Urine 2+ (Negative); Clarity Clear (Clear); Glucose, Urine (Dipstick) 50 mg/dL (Negative); Ketone, Urine 10 mg/dL (Negative); Leukocyte Negative Leu/uL (Negative); Nitrite Negative (Negative); Protein, Urine (Dipstick) 20 mg/dL (Neg-Trace); RBC/HPF Greater than 50 HPF (0-3); Specific Gravity, Urine 1.015 (1.002-1.036); Squamous Epithelial 0-3 HPF (0-3); Urobilinogen Normal mg/dL (Less than 2); WBC/HPF 0-3 HPF (0-3)
--- NOTE | 2020-11-30 10:08 | EKG ---
Test Reason : Blood Pressure : / mmHG Vent. Rate : 100 BPM Atrial Rate : 100 BPM P-R Int : 164 ms QRS Dur : 084 ms QT Int : 334 ms P-R-T Axes : 057 013 062 degrees QTc Int : 430 ms Normal sinus rhythm Cannot rule out Anterior infarct , age undetermined Abnormal ECG Confirmed by LAINE HARDING, GIGI Mccrary ([id number]), society editor BONIFACIO WELCH ([id number]) on 11/30/2020 10:07:58 AM Referred By: Confirmed By:GIGI JANG MD
== END 2020-11-25 15:41 | disposition home or self-care (01) ==
LOC: ERS 11:41
DX: R41.82 Altered mental status, unspecified (principal); T40.415A Adverse effect of fentanyl or fentanyl analogs, initial encounter; E11.9 Type 2 diabetes mellitus without complications; E78.5 Hyperlipidemia, unspecified; I10 Essential (primary) hypertension
CPT/HCPCS: 36415; 70450; 80053; 81003; 81015; 83605; 83690; 83880; 84484; 85025; 93005

== ENCOUNTER 2020-12-05 11:34 | Outpatient (CLI) | payer MEDICARE, BC ==
--- NOTE | 2020-12-05 12:07 | RAD ---
4 views of the lumbar spine: 12/05/2020 COMPARISON: None HISTORY: Chronic back pain FINDINGS: There is atherosclerotic calcification of the abdominal aorta. There is inferior osteophyte formation involving the sacroiliac joints. Vascular stent material noted overlying the right aspect of the lower lumbar spine. Prominent right lateral osteophyte formation present at L1-2 and L2 -3. A neutral lateral exam demonstrates retrolisthesis at L2-3 measuring 1.2 cm. There is disc space narr owing with degenerative endplate change and anterior osteophyte formation at L1-2 and L2-3. The flexion imaging demonstrates L2-3 anterolisthesis measuring 9 mm. On the extension imaging L2-3 retro listhesis measures approximately 1.3 cm. No acute osseous abnormality. Multilevel lower lumbar spine and mid lumbar spine facet hypertrophic c hange. IMPRESSION: Multilevel lumbar spine degenerative change. Findings include retrolisthesis at L2-3, mos t prominent with extension.
== END 2020-12-05 11:35 | disposition home or self-care (01) ==
LOC: BICRAD 11:34
PROVIDERS: ATTEND Anesthesiology
DX: M47.26 Other spondylosis with radiculopathy, lumbar region (principal)
CPT/HCPCS: 72100

== ENCOUNTER 2021-01-09 09:45 | Outpatient (CLI) | payer MEDICARE, BC ==
[2020-12-25 16:00] LABS: Hemoglobin 13.9 g/dL (13.5-17.5); Mean Corpuscular HGB CONC 32.4 g/dL (32.0-36.0); Mean Corpuscular Volume 95.8 fl (81.2-95.1); Mean Platelet Volume 12.5 fl (7.4-10.4); Platelet Count 225 10x3/uL (150-450); RBC Distribution Width 12.7 % (11.5-14.5); Red Blood Cell (RBC) Count 4.48 10x6/uL (4.32-5.72); White Blood Cell (WBC) Count 8.9 10x3/uL (3.5-10.5)
[2020-12-25 16:05] LABS: Anion Gap 15 mmol/L (10-20); BUN (Urea Nitrogen) 26 mg/dL (8.4-25.7); Calc. Creatinine Clearance 0 mL/min (70-130); Calcium 9.8 mg/dL (7.8-10.44); Carbon Dioxide 21 mmol/L (23-31); Chloride 105 mmol/L (98-107); Glucose 165 mg/dL (83-110); Potassium 4.8 mmol/L (3.5-5.1); Sodium 136 mmol/L (136-145)
[2020-12-26 05:15] LABS: SARS-CoV-2 PCR by NAA Not Detected (NotDetected)
[2021-01-09 17:26] LABS: SARS-CoV-2 PCR by NAA Not Detected (NotDetected)
== END 2021-01-09 09:46 | disposition home or self-care (01) ==
LOC: LABBT 09:45
PROVIDERS: ATTEND Neurological Surgery
DX: Z01.812 Encounter for preprocedural laboratory examination (principal); Z20.822 Contact with and (suspected) exposure to COVID-19; M54.16 Radiculopathy, lumbar region; M71.38 Other bursal cyst, other site
CPT/HCPCS: 80048; 85027; U0003 ×2; U0005 ×2; 87635

== ENCOUNTER 2021-01-13 06:55 | Day surgery (SDC) | payer MEDICARE, BC ==
[2020-12-27 10:37] VITALS: BMI 34.4
--- NOTE | 2021-01-12 16:22 | HP ---
Mr. Reese is known to us for prior lumbar decompression, who returns now at the request of Dr. Bai for evaluation of his right lower extremity pain. This fits well in L4 pattern. He has an MRI scan performed at the end of the year 2019, which reveals bilateral synovial cysts at L3-4 which in fact the descending L4 nerve root. This most certainly would explain the symptoms that he is having. He hopes to treat this surgically. PAST MEDICAL HISTORY: Significant for diabetes, hypertension, hypercholesterolemia. PAST SURGICAL HISTORY: Vasectomy, lumbar decompression, cardiac stents, cholecystectomy. ALLERGIES: TO NIACIN. CURRENT MEDICATIONS: 1. Losartan. 2. Furosemide. 3. Potassium chloride. 4. Aspirin. 5. Oxybutynin. 6. Metformin. 7. Glipizide. 8. Atorvastatin. 9. Fenofibrate. 10. Pioglitazone. 11. Omeprazole. 12. Carvedilol. 13. Pregabalin. 14. Fentanyl patch. 15. Amitriptyline. 16. Tamsulosin. 17. Finasteride. 18. Tramadol. PHYSICAL EXAMINATION: Deferred for telehealth visit. ASSESSMENT: Lumbar synovial cyst with radiculopathy. PLAN: Dr. Nam met with the patient, reviewed. Imaging and advocated for the right L3-4 synovial cystectomy. He explained to the patient risks, benefits, and alternatives to the procedure. The patient expressed understanding and would like to move forward surgery as discussed. I do believe the patient is mentally competent and capable of making medical decisions for himself. We will move forward with surgery as planned. Job ID: [id number]
[2021-01-13] MEDS ORDERED: EPINEPHrine 1 MG/ML AMP ONE (07:58)
[2021-01-13] MEDS ORDERED: Bupivacaine PF 0.5% 30 ML VIAL ONE (07:58)
[2021-01-13] MEDS ORDERED: Fentanyl 100 MCG/2 ML VIAL ONE ×4 (08:40→10:38)
--- NOTE | 2021-01-13 10:17 | OP ---
DATE OF PROCEDURE: 01/13/2021 CORPORATE ASSOCIATE ATTORNEY: Donavon Case. INDICATION: Pain. DIAGNOSIS: Lumbar radiculopathy secondary to synovial cyst. PROCEDURE PERFORMED: Right L3-L4 decompression. ANESTHESIA: General. DESCRIPTION OF PROCEDURE: The patient was brought into the operating room and placed under general anesthesia. He was flipped from the supine to prone position on the operating room table. A linear incision was planned over the L3-L4 segment. After prepping and draping and after an appropriate preoperative pause, the incision was created. The soft tissues were swept right of midline. A self-retaining retractor was placed in the wound for optimal exposure. After confirming the appropriate level with C-arm fluoroscopy, high-speed cutting drill bit as well as 2, 3, and 4 mm Kerrisons were then used to perform a laminectomy along the inferior aspect of L3 and the superior aspect of L4. After completing a laminectomy, the laminectomy was extended laterally to encompass the medial aspect of the facet joint until the lateral recesses as well as descending nerve roots were well decompressed. The wound was then irrigated. Hemostasis was maintained throughout. The wound was then closed in anatomic layers and a pressure dressing was applied. There were no known procedural complications. Job ID: [id number]
[2021-01-13] MEDS ORDERED: hydrALAZINE 20 MG/ML VIAL ONE (10:22)
[2021-01-13] MEDS ORDERED: Tamsulosin HCl 0.4 MG CAP ONE (10:34)
[2021-01-13] MEDS ORDERED: PHENYLEPHRINE-NS 100 MCG/ML 10 ML SYRINGE ONE (10:43)
[2021-01-13] MEDS ORDERED: PROPOFOL 200 MG/20 ML VIAL ONE (10:43)
[2021-01-13] MEDS ORDERED: Glycopyrrolate 0.2 MG/ML 5 ML SYRINGE ONE (10:43)
[2021-01-13] MEDS ORDERED: Rocuronium Bromide 10 MG/ML (10ML VIAL) ONE (10:43)
[2021-01-13] MEDS ORDERED: Ondansetron PF 4 MG/2 ML Vial ONE (10:43)
[2021-01-13] MEDS ORDERED: Ketorolac Tromethamine 30 MG/ML VIAL ONE (10:43)
[2021-01-13] MEDS ORDERED: Dexamethasone 20 MG/5 ML VIAL ONE (10:43)
[2021-01-13] MEDS ORDERED: HYDROcodone/Acetaminophen 5/325 mg Tablet ONE (11:46)
== END 2021-01-13 13:01 | disposition home or self-care (01) ==
LOC: SDC 06:55
PROVIDERS: ATTEND Neurological Surgery
PROC: 01NB0ZZ Release Lumbar Nerve, Open Approach (ICD-10-PCS; principal; 2021-01-13)
DX: M54.16 Radiculopathy, lumbar region (principal); M71.38 Other bursal cyst, other site; E11.9 Type 2 diabetes mellitus without complications; I10 Essential (primary) hypertension; E78.00 Pure hypercholesterolemia, unspecified; G47.30 Sleep apnea, unspecified; Z79.82 Long term (current) use of aspirin; Z79.84 Long term (current) use of oral hypoglycemic drugs; Z79.899 Other long term (current) drug therapy; Z88.8 Allergy status to other drugs, medicaments and biological substances; Z95.5 Presence of coronary angioplasty implant and graft
CPT/HCPCS: 76000; J0171; J0360; J0690; J1100; J1885; J2405; J2704; J3010; S0020

== ENCOUNTER 2021-09-04 20:47 | Inpatient (IN) | payer MEDICARE, BC ==
[2021-09-04 21:29] LABS: #Basophils 0.1 thou/uL (0.0-0.2); #Eosinphils 0.2 thou/uL (0.0-0.7); #Lymphocytes 3.1 thou/uL (1.20-3.40); #Monocytes 0.7 thou/uL (0.11-0.59); #Neutrophils 4.6 thou/uL (1.40-6.50); %Basophils 1.3 % (0.0-1.0); %Eosinophils 2.8 % (0.0-10.0); %Lymphocytes 35.8 % (21.0-51.0); %Monocytes 7.6 % (0.0-10.0); %Neutrophils 52.4 % (42.0-75.0); Hemoglobin 14.1 g/dL (14.0-18.0); Mean Corpuscular HGB CONC 34.8 g/dL (32.0-36.0); Mean Corpuscular Hemoglobin 32.8 pg (27.0-31.0); Mean Platelet Volume 10.3 fL (7.4-10.4); Platelet Count 238 thou/uL (130-400); RBC Distribution Width 12.2 % (11.5-14.5); Red Blood Cell (RBC) Count 4.32 mill/uL (4.70-6.10); White Blood Cell (WBC) Count 8.8 thou/uL (4.8-10.8)
[2021-09-04 21:49] LABS: ALT (SGPT) 17 U/L (8-55); AST (SGOT) 17 U/L (5-34); Albumin 3.7 g/dL (3.4-4.8); Alkaline Phosphatase 68 U/L (40-110); Anion Gap 16 mmol/L (10-20); BUN (Urea Nitrogen) 16 mg/dL (8.4-25.7); Bilirubin, Total 0.5 mg/dL (0.2-1.2); Calc. Creatinine Clearance 0 mL/min (70-130); Calcium 10.1 mg/dL (7.8-10.44); Carbon Dioxide 19 mmol/L (23-31); Chloride 105 mmol/L (98-107); Globulin 2.7 g/dL (2.4-3.5); Glucose 215 mg/dL (83-110); Potassium 4.2 mmol/L (3.5-5.1); Protein, Total 6.4 g/dL (5.8-8.1); Sodium 136 mmol/L (136-145)
[2021-09-04] MEDS ORDERED: Aspirin Chewable 81 MG TAB ONE (22:39)
[2021-09-04 22:51] LABS: Bilirubin Negative (Negative); Blood, Urine Negative (Negative); Clarity Clear (Clear); Glucose, Urine (Dipstick) 70 mg/dL (Negative); Ketone, Urine Negative (Negative); Leukocyte Negative Leu/uL (Negative); Nitrite Negative (Negative); Protein, Urine (Dipstick) Negative (Neg-Trace); Specific Gravity, Urine 1.007 (1.002-1.036); Urobilinogen Normal mg/dL (Less than 2)
[2021-09-05] MEDS ORDERED: Ondansetron PF 4 MG/2 ML Vial IVP PRN (00:11)
[2021-09-05] MEDS ORDERED: Acetaminophen 325 MG TAB PO PRN (00:11)
[2021-09-05] MEDS ORDERED: hydrALAZINE 20 MG/ML VIAL SLOW IVP PRN (00:11)
[2021-09-05] MEDS ORDERED: Labetalol HCl 100 MG/20 ML VIAL SLOW IVP PRN (00:11)
[2021-09-05] MEDS ORDERED: Dextrose 50% Abboject 50 ML SYRINGE SLOW IVP PRN (00:18)
[2021-09-05] MEDS ORDERED: Dextrose 5% in Water 1,000 ML IV PRN (00:18)
[2021-09-05 01:59] VITALS: BMI 33.6
[2021-09-05 03:53] LABS: #Basophils 0.1 thou/uL (0.0-0.2); #Eosinphils 0.2 thou/uL (0.0-0.7); #Monocytes 0.6 thou/uL (0.11-0.59); #Neutrophils 3.4 thou/uL (1.40-6.50); %Basophils 1.8 % (0.0-1.0); %Eosinophils 3.2 % (0.0-10.0); %Lymphocytes 40.5 % (21.0-51.0); %Monocytes 8.3 % (0.0-10.0); %Neutrophils 46.2 % (42.0-75.0); Hemoglobin 13.9 g/dL (14.0-18.0); Mean Corpuscular HGB CONC 34.5 g/dL (32.0-36.0); Mean Corpuscular Hemoglobin 32.3 pg (27.0-31.0); Mean Corpuscular Volume 93.7 fL (78.0-98.0); Platelet Count 219 thou/uL (130-400); RBC Distribution Width 12.1 % (11.5-14.5); White Blood Cell (WBC) Count 7.3 thou/uL (4.8-10.8)
[2021-09-05 04:04] LABS: Hemoglobin A1c 10.9 % (4.0-6.0)
[2021-09-05 04:13] LABS: Anion Gap 14 mmol/L (10-20); BUN (Urea Nitrogen) 17 mg/dL (8.4-25.7); Calc. Creatinine Clearance 68 mL/min (70-130); Calcium 10.3 mg/dL (7.8-10.44); Carbon Dioxide 22 mmol/L (23-31); Cardiac Risk 8.3 (Less than 4.5); Chloride 106 mmol/L (98-107); Cholesterol 216 mg/dl (< 200 Desired); Glucose 210 mg/dL (83-110); HDL Cholesterol 26 mg/dL (>60 Neg Risk); LDL Cholesterol, Calculated 134 mg/dL; Potassium 3.8 mmol/L (3.5-5.1); Sodium 138 mmol/L (136-145); Triglycerides 281 mg/dL (Less than 150)
[2021-09-05] MEDS: HumaLOG 300 UNITS/3 ML VIAL SC PRN ×4 (06:06→20:05)
[2021-09-05] MEDS ORDERED: FLU VACC QS2021-22(65YR UP)/PF 240 MCG/0.7 ML SYRINGE IM ONE (09:00)
[2021-09-05] MEDS: Aspirin 325 mg Enteric Coated Tablet PO SCH (09:07)
[2021-09-05] MEDS: Heparin 5,000 UNITS/ML VIAL SC SCH ×3 (09:07→20:02)
[2021-09-05] MEDS ORDERED: Lorazepam 2 MG/ML VIAL SLOW IVP PRN (10:41)
[2021-09-05 15:42] LABS: SARS-CoV-2 PCR by NAA Not Detected (NotDetected)
[2021-09-05] MEDS: Atorvastatin Calcium 40 MG TAB PO SCH (20:02)
[2021-09-05] MEDS ORDERED: Nystatin Powder 15 GM BOT TOP PRN (20:08)
[2021-09-05] MEDS ORDERED: Atorvastatin Calcium 40 MG TAB PO SCH (21:00)
[2021-09-06] MEDS: HumaLOG 300 UNITS/3 ML VIAL SC PRN ×3 (05:49→17:20)
[2021-09-06 06:22] LABS: #Basophils 0.1 thou/uL (0.0-0.2); #Eosinphils 0.2 thou/uL (0.0-0.7); #Lymphocytes 2.9 thou/uL (1.20-3.40); #Monocytes 0.8 thou/uL (0.11-0.59); #Neutrophils 4.5 thou/uL (1.40-6.50); %Basophils 1.5 % (0.0-1.0); %Eosinophils 2.7 % (0.0-10.0); %Lymphocytes 34.3 % (21.0-51.0); %Monocytes 8.9 % (0.0-10.0); %Neutrophils 52.6 % (42.0-75.0); Hemoglobin 14.8 g/dL (14.0-18.0); Mean Corpuscular HGB CONC 35.2 g/dL (32.0-36.0); Mean Corpuscular Hemoglobin 32.5 pg (27.0-31.0); Mean Corpuscular Volume 92.4 fL (78.0-98.0); Mean Platelet Volume 10.4 fL (7.4-10.4); Platelet Count 231 thou/uL (130-400); RBC Distribution Width 12.2 % (11.5-14.5); Red Blood Cell (RBC) Count 4.54 mill/uL (4.70-6.10); White Blood Cell (WBC) Count 8.5 thou/uL (4.8-10.8)
[2021-09-06 06:41] LABS: Anion Gap 17 mmol/L (10-20); BUN (Urea Nitrogen) 13 mg/dL (8.4-25.7); Calc. Creatinine Clearance 74 mL/min (70-130); Carbon Dioxide 19 mmol/L (23-31); Chloride 103 mmol/L (98-107); Glucose 234 mg/dL (83-110); Potassium 3.8 mmol/L (3.5-5.1); Sodium 135 mmol/L (136-145)
[2021-09-06] MEDS: Aspirin 325 mg Enteric Coated Tablet PO SCH (08:47)
[2021-09-06] MEDS: Heparin 5,000 UNITS/ML VIAL SC SCH ×3 (08:47→20:16)
[2021-09-06] MEDS ORDERED: Labetalol HCl 100 MG/20 ML VIAL SLOW IVP PRN (15:35)
[2021-09-06] MEDS: Carvedilol 6.25 MG TAB PO SCH (16:01)
[2021-09-06] MEDS: Artificial Tear Sol 15 ML BOT EA EYE SCH (20:16)
[2021-09-06] MEDS: Atorvastatin Calcium 40 MG TAB PO SCH (20:16)
[2021-09-06] MEDS: Tamsulosin HCl 0.4 MG CAP PO SCH (20:17)
[2021-09-06] MEDS ORDERED: Non-Formulary Item 1 EACH (Zonisamide [Zonisamide] 50 MG Capsule) PO SCH (21:00)
[2021-09-07] MEDS: HumaLOG 300 UNITS/3 ML VIAL SC PRN ×3 (05:55→20:21)
[2021-09-07] MEDS: glipiZIDE 5 MG TAB PO SCH ×2 (07:13→16:36)
[2021-09-07 07:55] LABS: #Basophils 0.1 thou/uL (0.0-0.2); #Eosinphils 0.2 thou/uL (0.0-0.7); #Lymphocytes 2.9 thou/uL (1.20-3.40); #Monocytes 0.7 thou/uL (0.11-0.59); %Basophils 1.6 % (0.0-1.0); %Eosinophils 2.6 % (0.0-10.0); %Lymphocytes 36.3 % (21.0-51.0); %Neutrophils 50.5 % (42.0-75.0); Hemoglobin 14.7 g/dL (14.0-18.0); Mean Corpuscular HGB CONC 34.4 g/dL (32.0-36.0); Mean Corpuscular Hemoglobin 31.6 pg (27.0-31.0); Mean Corpuscular Volume 91.9 fL (78.0-98.0); Mean Platelet Volume 9.9 fL (7.4-10.4); Platelet Count 233 thou/uL (130-400); Red Blood Cell (RBC) Count 4.66 mill/uL (4.70-6.10); White Blood Cell (WBC) Count 7.9 thou/uL (4.8-10.8)
[2021-09-07 08:14] LABS: BUN (Urea Nitrogen) 14 mg/dL (8.4-25.7); Calc. Creatinine Clearance 68 mL/min (70-130); Calcium 9.7 mg/dL (7.8-10.44); Carbon Dioxide 21 mmol/L (23-31); Chloride 102 mmol/L (98-107); Glucose 247 mg/dL (83-110); Magnesium 1.4 mg/dL (1.6-2.6); Potassium 3.7 mmol/L (3.5-5.1)
[2021-09-07 08:32] LABS: Sodium 134 mmol/L (136-145)
[2021-09-07 08:40] LABS: Anion Gap 15 mmol/L (10-20)
[2021-09-07] MEDS: Heparin 5,000 UNITS/ML VIAL SC SCH ×3 (08:51→20:21)
[2021-09-07] MEDS: Carvedilol 6.25 MG TAB PO SCH ×2 (08:51→16:36)
[2021-09-07] MEDS: Artificial Tear Sol 15 ML BOT EA EYE SCH ×3 (08:52→20:20)
[2021-09-07] MEDS: Finasteride 5 MG TAB PO SCH (08:52)
[2021-09-07] MEDS ORDERED: Non-Formulary Item 1 EACH (Zonisamide [Zonisamide] 50 MG Capsule) PO SCH (09:00)
[2021-09-07] MEDS ORDERED: Magnesium Sulfate 4 GM in Sodium Chloride 0.9% 250 ML 250 ML IVPB SCH (09:00)
[2021-09-07] MEDS: Aspirin 81 mg Enteric Coated Tablet PO SCH (09:01)
[2021-09-07] MEDS ORDERED: Sodium Chloride 0.9% 1,000 ML IV SCH (11:15)
[2021-09-07] MEDS: Sodium Chloride 0.9% 1,000 ML IV SCH (12:24)
[2021-09-07] MEDS ORDERED: Electrolyte Replacement Protocol 1 EACH FS SCH (20:00)
[2021-09-07] MEDS: Tamsulosin HCl 0.4 MG CAP PO SCH (20:21)
[2021-09-07] MEDS: Atorvastatin Calcium 40 MG TAB PO SCH (20:21)
[2021-09-08 04:01] LABS: #Basophils 0.1 thou/uL (0.0-0.2); #Eosinphils 0.2 thou/uL (0.0-0.7); #Lymphocytes 2.9 thou/uL (1.20-3.40); #Monocytes 0.8 thou/uL (0.11-0.59); %Basophils 1.5 % (0.0-1.0); %Eosinophils 2.7 % (0.0-10.0); %Lymphocytes 35.9 % (21.0-51.0); %Monocytes 9.9 % (0.0-10.0); Hemoglobin 13.7 g/dL (14.0-18.0); Mean Corpuscular HGB CONC 35.5 g/dL (32.0-36.0); Mean Corpuscular Hemoglobin 32.6 pg (27.0-31.0); Mean Corpuscular Volume 91.9 fL (78.0-98.0); Mean Platelet Volume 10.6 fL (7.4-10.4); Platelet Count 233 thou/uL (130-400); Red Blood Cell (RBC) Count 4.19 mill/uL (4.70-6.10); White Blood Cell (WBC) Count 8.1 thou/uL (4.8-10.8)
[2021-09-08 04:23] LABS: Anion Gap 17 mmol/L (10-20); BUN (Urea Nitrogen) 15 mg/dL (8.4-25.7); Calc. Creatinine Clearance 75 mL/min (70-130); Carbon Dioxide 18 mmol/L (23-31); Chloride 103 mmol/L (98-107); Glucose 184 mg/dL (83-110); Potassium 3.9 mmol/L (3.5-5.1); Sodium 134 mmol/L (136-145)
[2021-09-08] MEDS ORDERED: Magnesium 2 GM/50 ML 2 GM in Premix Bag 1 BAG IVPB SCH (05:00)
[2021-09-08] MEDS: Sodium Chloride 0.9% 1,000 ML IV SCH (05:11)
[2021-09-08] MEDS: HumaLOG 300 UNITS/3 ML VIAL SC PRN ×2 (05:17→13:00)
[2021-09-08] MEDS ORDERED: Amlodipine 5 MG TAB PO SCH ×2 (09:00→21:00)
[2021-09-08] MEDS: glipiZIDE 5 MG TAB PO SCH (09:34)
[2021-09-08] MEDS: Finasteride 5 MG TAB PO SCH (09:34)
[2021-09-08] MEDS: Aspirin 81 mg Enteric Coated Tablet PO SCH (09:34)
[2021-09-08] MEDS: Carvedilol 6.25 MG TAB PO SCH (09:34)
[2021-09-08] MEDS: Heparin 5,000 UNITS/ML VIAL SC SCH ×2 (09:35→17:30)
[2021-09-08] MEDS: Artificial Tear Sol 15 ML BOT EA EYE SCH ×2 (09:35→17:30)
[2021-09-08] MEDS ORDERED: Labetalol HCl 100 MG/20 ML VIAL SLOW IVP PRN (12:24)
[2021-09-08 15:57] VITALS: BP 161/94; TEMP 98.1
== END 2021-09-08 16:11 | DRG 64 ==
LOC: ERS 20:47 → 3SE 23:13
PROVIDERS: ADMIT Internal Medicine; ATTEND Internal Medicine
DX: I63.531 Cerebral infarction due to unspecified occlusion or stenosis of right posterior cerebral artery (principal); G93.6 Cerebral edema; G81.94 Hemiplegia, unspecified affecting left nondominant side; E87.1 Hypo-osmolality and hyponatremia; Z20.822 Contact with and (suspected) exposure to COVID-19; R29.703 NIHSS score 3; I12.9 Hypertensive chronic kidney disease with stage 1 through stage 4 chronic kidney disease, or unspecified chronic kidney disease; E78.5 Hyperlipidemia, unspecified; I25.10 Atherosclerotic heart disease of native coronary artery without angina pectoris; E11.22 Type 2 diabetes mellitus with diabetic chronic kidney disease; N18.30 Chronic kidney disease, stage 3 unspecified; G89.29 Other chronic pain; M54.9 Dorsalgia, unspecified; Z96.0 Presence of urogenital implants; R20.0 Anesthesia of skin; I08.1 Rheumatic disorders of both mitral and tricuspid valves; E66.9 Obesity, unspecified; H53.2 Diplopia; E83.42 Hypomagnesemia; R31.9 Hematuria, unspecified; Z79.899 Other long term (current) drug therapy; Z88.8 Allergy status to other drugs, medicaments and biological substances; Z79.84 Long term (current) use of oral hypoglycemic drugs; Z90.49 Acquired absence of other specified parts of digestive tract; Z95.1 Presence of aortocoronary bypass graft; Z98.49 Cataract extraction status, unspecified eye; Z87.898 Personal history of other specified conditions; Z68.33 Body mass index [BMI] 33.0-33.9, adult
CPT/HCPCS: 36415; 36416; 70450; 70551; 71045; 80048; 80053; 80061; 81003; 83036; 83735; 84100; 84484; 85025; 90471; 90662; 93005; 93306; 93880; G0008; J1644; J1815; J2060; J3475; J7050; U0003; U0005

== ENCOUNTER 2022-06-21 01:54 | Observation (INO) | payer MEDICARE, BC ==
[2022-06-21 03:34] VITALS: BMI 32.8
[2022-06-21] MEDS ORDERED: Acetaminophen 325 MG TAB PO PRN (04:20)
[2022-06-21] MEDS ORDERED: Ondansetron PF 4 MG/2 ML Vial IVP PRN (04:20)
[2022-06-21] MEDS ORDERED: Dextrose 5% in Water 1,000 ML IV PRN (04:32)
[2022-06-21] MEDS ORDERED: Dextrose 50% Abboject 50 ML SYRINGE SLOW IVP PRN (04:32)
[2022-06-21] MEDS ORDERED: HumaLOG 300 UNITS/3 ML VIAL SC PRN ×2 (04:32)
[2022-06-21 05:32] LABS: #Basophils 0.1 thou/uL (0.0-0.2); #Eosinphils 0.3 thou/uL (0.0-0.7); #Lymphocytes 2.9 thou/uL (1.20-3.40); #Monocytes 0.6 thou/uL (0.11-0.59); #Neutrophils 3.9 thou/uL (1.40-6.50); %Eosinophils 4.1 % (0.0-10.0); %Lymphocytes 37.7 % (21.0-51.0); %Monocytes 7.4 % (0.0-10.0); %Neutrophils 49.9 % (42.0-75.0); Hemoglobin 13.7 g/dL (14.0-18.0); Mean Corpuscular HGB CONC 34.3 g/dL (32.0-36.0); Mean Corpuscular Hemoglobin 33.3 pg (27.0-31.0); Mean Platelet Volume 10.5 fL (7.4-10.4); Platelet Count 166 thou/uL (130-400); RBC Distribution Width 12.2 % (11.5-14.5); Red Blood Cell (RBC) Count 4.11 mill/uL (4.70-6.10); White Blood Cell (WBC) Count 7.8 thou/uL (4.8-10.8)
[2022-06-21 05:53] LABS: Hemoglobin A1c 5.7 % (4.0-6.0)
[2022-06-21 06:07] LABS: LDL Cholesterol, Calculated 83 mg/dL
[2022-06-21 06:18] LABS: Triglycerides 220 mg/dL (Less than 150)
[2022-06-21 06:19] LABS: Anion Gap 11 mmol/L (10-20); BUN (Urea Nitrogen) 18 mg/dL (8.4-25.7); Calc. Creatinine Clearance 73 mL/min (70-130); Calcium 9.4 mg/dL (7.8-10.44); Carbon Dioxide 24 mmol/L (23-31); Cardiac Risk 5.1 (Less than 4.5); Chloride 112 mmol/L (98-107); Cholesterol 167 mg/dl (< 200 Desired); Estimated GFR 64; Glucose 109 mg/dL (83-110); HDL Cholesterol 33 mg/dL (>60 Neg Risk); Potassium 4.2 mmol/L (3.5-5.1); Sodium 143 mmol/L (136-145)
[2022-06-21 08:31] LABS: Amphetamine Not Detected (NotDetected); Barbiturates Screen Not Detected (NotDetected); Benzodiazepine Screen Not Detected (NotDetected); Cocaine Metabolite Screen Not Detected (NotDetected); Methadone Not Detected (NotDetected); Methamphetamine Not Detected (NotDetected); Opiate Screen Not Detected (NotDetected); Oxycodone Screen Not Detected (NotDetected); Phencyclidine (PCP) Not Detected (NotDetected); THC/Cannabinoid Screen Not Detected (NotDetected); Tricyclic Screen Not Detected (NotDetected)
[2022-06-21] MEDS ORDERED: Enoxaparin Sodium 40 MG/0.4 ML SYRINGE SC SCH (09:00)
[2022-06-21 11:29] LABS: SARS-CoV-2 NAA Rapid Test Not Detected (NotDetected)
[2022-06-21 12:30] VITALS: BP 158/90; TEMP 97.7
== END 2022-06-21 15:54 | disposition home or self-care (01) ==
LOC: NEURO 03:08
PROVIDERS: ADMIT Internal Medicine; ATTEND Internal Medicine
DX: G93.40 Encephalopathy, unspecified (principal); I13.0 Hypertensive heart and chronic kidney disease with heart failure and stage 1 through stage 4 chronic kidney disease, or unspecified chronic kidney disease; E11.22 Type 2 diabetes mellitus with diabetic chronic kidney disease; N18.30 Chronic kidney disease, stage 3 unspecified; I50.32 Chronic diastolic (congestive) heart failure; E78.5 Hyperlipidemia, unspecified; I25.10 Atherosclerotic heart disease of native coronary artery without angina pectoris; G89.29 Other chronic pain; M54.9 Dorsalgia, unspecified; N40.0 Benign prostatic hyperplasia without lower urinary tract symptoms; I69.398 Other sequelae of cerebral infarction; H53.8 Other visual disturbances; Z79.899 Other long term (current) drug therapy; Z88.8 Allergy status to other drugs, medicaments and biological substances; Z95.1 Presence of aortocoronary bypass graft; Z20.822 Contact with and (suspected) exposure to COVID-19; W19.XXXA Unspecified fall, initial encounter
CPT/HCPCS: 36416; 70551; 80061; 80306; 83036; 96372; G0378; J1650; U0002

== ENCOUNTER 2022-07-02 11:15 | Outpatient (CLI) | payer MEDICARE, BC ==
[2022-07-02] MEDS ORDERED: Iopamidol 370 76% 100 ML VIAL ONE (11:49)
== END 2022-07-02 11:16 | disposition home or self-care (01) ==
LOC: CT 11:15
PROVIDERS: ATTEND Psychiatry & Neurology Neurology
DX: I63.531 Cerebral infarction due to unspecified occlusion or stenosis of right posterior cerebral artery (principal); G93.89 Other specified disorders of brain
CPT/HCPCS: 70496; 70498; Q9967

== ENCOUNTER 2023-03-30 12:21 | Outpatient (CLI) | payer MEDICARE, BC ==
[~2023-03-30 12:21] MED LIST: Magnevist 469MG/ML 20 ML VIAL ONE
== END 2023-03-30 12:22 | disposition home or self-care (01) ==
LOC: MRI 12:21
PROVIDERS: ATTEND Psychiatry & Neurology Neurology
DX: G40.309 Generalized idiopathic epilepsy and epileptic syndromes, not intractable, without status epilepticus (principal)
CPT/HCPCS: 70553; 95816; 95957; A9579